=== PATIENT | male | born 1960 | race Caucasian/White ===

== ENCOUNTER 2023-12-14 02:24 | Inpatient (IN) ==
--- NOTE | 2023-12-14 02:55 | Emergency Department Note ---
History of Present Illness General Chief complaint: Abdominal Pain Stated complaint: BLOATING, CONSTIPATION FOR 2 WEEKS Time Seen by Provider: 12/14/23 02:38 History of Present Illness Maximum Pain Intensity: 7 This 63-year-old male presents to the ER complaining abdominal fullness and bloating and lower leg swelling for the past week or 2 steadily getting worse. Patient states he only has a couple beers a day. Patient has not noticed that his urines been dark. His urine sample was quite brown in color. Patient denies chest pain, fever, chills, cough, congestion, flulike illness. No known alcoholism problem per patient. Home Medications Medication Instructions Recorded Confirmed Type docusate sodium 100 mg capsule 100 mg PO BID PRN constipation #20 06/11/18 Rx (Colace) caps oxycodone 5 mg tablet 5 - 10 mg (1 - 2 x 5 mg) PO Q6H 06/11/18 Rx PRN pain #15 tabs Allergies Allergy/AdvReac Type Severity Reaction Status Date / Time No Known Allergies Allergy Unverified 06/11/18 02:15 Past Med/Surg History Problem List (Updated 12/14/23 @ 04:55 by Johanny Peña PA-C) Acute hyponatremia (Acute) Cirrhosis of liver with ascites (Acute) Hypotension (Acute) Atrial fibrillation with rapid ventricular response (Acute) Hemorrhoids (Chronic) Acute cholecystitis (Acute) Acute cholecystitis (Acute 07/11/13) Helicobacter pylori antibody positive (Acute) Social History Smoking Status: Never smoker Preferred Language: Kosovan Feels Safe at Home: Yes Review of Systems A total of 10 systems reviewed and were otherwise negative Physical Exam Vital Signs Vital Signs - 24 hr 12/14/23 02:32 12/14/23 02:48 12/14/23 02:48 Temperature 36.8 C Temperature Source Temporal Artery Scan Pulse Rate 120 H 115 H Pulse Rate [Left Radial] 125 H Pulse Rate from SpO2 Sensor Pulse Rhythm Pulse Rhythm [Left Radial] Regular Pulse Strength [Left Radial] Normal Respiratory Rate 20 22 25 H Respiratory Effort / Characteristics Non-Labored Non-Labored Spontaneous Respiratory Depth Normal Normal Respiratory Pattern Regular Blood Pressure 133/74 120/86 Blood Pressure [Right Arm] 120/86 Blood Pressure Mean 93 97 Blood Pressure Mean [Right Arm] 97 Blood Pressure Position [Right Arm] Lying Pulse Oximetry 98 99 96 Oxygen Delivery Method Room Air Room Air Sepsis Recent Fever Within 48 Hours No Sepsis New/Unexplained Change in Mental Status No Sepsis Action Taken by Nursing No Action Required 12/14/23 02:49 12/14/23 03:02 12/14/23 03:30 Temperature Temperature Source Pulse Rate 122 H 115 H Pulse Rate [Left Radial] 107 H Pulse Rate from SpO2 Sensor Pulse Rhythm Regular Pulse Rhythm [Left Radial] Regular Pulse Strength [Left Radial] Normal Respiratory Rate 22 20 Respiratory Effort / Characteristics Non-Labored Spontaneous Respiratory Depth Normal Respiratory Pattern Regular Blood Pressure Blood Pressure [Right Arm] 137/85 Blood Pressure Mean Blood Pressure Mean [Right Arm] 102 Blood Pressure Position [Right Arm] Lying Pulse Oximetry 98 99 Oxygen Delivery Method Room Air Room Air Sepsis Recent Fever Within 48 Hours Sepsis New/Unexplained Change in Mental Status Sepsis Action Taken by Nursing 12/14/23 03:30 12/14/23 04:00 12/14/23 04:00 Temperature Temperature Source Pulse Rate 105 H 100 H 100 H Pulse Rate [Left Radial] Pulse Rate from SpO2 Sensor 104 H 100 H Pulse Rhythm Pulse Rhythm [Left Radial] Pulse Strength [Left Radial] Respiratory Rate 17 13 Respiratory Effort / Characteristics Respiratory Depth Respiratory Pattern Blood Pressure 137/85 127/81 127/81 Blood Pressure [Right Arm] Blood Pressure Mean 101 95 96 Blood Pressure Mean [Right Arm] Blood Pressure Position [Right Arm] Pulse Oximetry 97 96 96 Oxygen Delivery Method Sepsis Recent Fever Within 48 Hours Sepsis New/Unexplained Change in Mental Status Sepsis Action Taken by Nursing 12/14/23 05:00 Temperature Temperature Source Pulse Rate 97 H Pulse Rate [Left Radial] Pulse Rate from SpO2 Sensor 97 H Pulse Rhythm Pulse Rhythm [Left Radial] Pulse Strength [Left Radial] Respiratory Rate 15 Respiratory Effort / Characteristics Respiratory Depth Respiratory Pattern Blood Pressure 131/80 Blood Pressure [Right Arm] Blood Pressure Mean 95 Blood Pressure Mean [Right Arm] Blood Pressure Position [Right Arm] Pulse Oximetry 95 Oxygen Delivery Method Sepsis Recent Fever Within 48 Hours Sepsis New/Unexplained Change in Mental Status Sepsis Action Taken by Nursing VITALS: Vitals are noted on the nurse's note and reviewed by myself. Vital signs stable. GENERAL: White male mild jaundice, in no acute distress, nondiaphoretic, well- developed well-nourished. SKIN: Capillary reflex less than 2 seconds. HEENT: Normocephalic. PERRLA. EOMI. Nares patent. Mucous membranes moist. Neck is supple without nuchal rigidity. HEART: Regular rate and rhythm LUNGS: Clear to auscultation bilaterally without wheezes, rales or rhonchi. No retractions or accessory muscle use. ABDOMEN: Positive bowel sounds x 4. Normal tympanic percussion. Soft, distended, mild diffuse tenderness, positive fluid wave, without masses or organomegaly. Rausch sign negative. No guarding or rebound tenderness. no CVA tenderness MUSCULOSKELETAL: No gross musculoskeletal defects. +1 pitting edema up to the mid tib-fib bilaterally. NEURO: Patient was alert and oriented to person place and time. No focal neurological deficits. Course Administered Medications Discontinued Medications Sodium Chloride (Nss) 500 mls @ 999 mls/hr IV .Q31M ONE Stop: 12/14/23 04:37 Last Infusion: 12/14/23 05:26 Dose: Infused Documented By: Admin: 12/14/23 04:21 Dose: 999 mls/hr Documented By: JYOTI Ioversol (Optiray 320 125ml) 125 ml IV ONCE ONE Stop: 12/14/23 03:30 Last Admin: 12/14/23 03:30 Dose: 118 ml Documented By: DAVID Medical Decision Making Medical Records Attestation: I reviewed the patient's medical records. Home Medications Current Medication List: was personally reviewed by me Laboratory Data Attestation: I reviewed the patient's lab results. 12/14/23 02:50 12/14/23 02:50 Lab Results 12/14/23 12/14/23 12/14/23 Range/Units 02:45 02:50 03:02 WBC 7.20 (4.8-10.8) K/ul RBC 3.99 L (4.70-6.10) M/uL Hgb 13.8 L (14.0-18.0) g/dl POC Hgb 14.6 (14.0-18.0) g/dl Hct 39.8 L (42.0-52.0) % POC Hct 43 (42-52) % MCV 99.7 (80.0-100.0) fL MCH 34.6 H (25.0-34.0) pg MCHC 34.7 (32.0-36.0) g/dL RDW Std Deviation 49.6 H (36.4-46.3) fL RDW Coeff of Elisabeth 13.4 (11.5-14.5) % Plt Count 237 (130-400) K/uL MPV 9.1 L (9.4-12.4) fL Immature Gran % (Auto) 0.4 % Neut % (Auto) 65.5 % Lymph % (Auto) 19.0 % [place] % (Auto) 12.5 % Eos % (Auto) 2.2 % Baso % (Auto) 0.4 % Neut # (Auto) 4.71 (1.40-6.50) K/uL Lymph # (Auto) 1.37 (1.20-3.40) K/uL [place] # (Auto) 0.90 H (0.11-0.59) K/uL Eos # (Auto) 0.16 (0.00-0.50) K/uL Baso # (Auto) 0.03 (0.00-0.20) K/uL Immature Gran # (Auto) 0.03 (0.01-0.20) K/uL PT 13.5 H (9.0-12.0) Seconds INR 1.3 H (0.9-1.1) APTT 27 (21-31) Seconds PTT Ratio 1.0 POC Sodium 127 L (135-144) mmol/L Sodium 124 L (136-145) mmol/L POC Potassium 4.7 (3.3-5.0) mmol/L Potassium 4.5 (3.5-5.1) mmol/L POC Chloride 93 L (101-112) mmol/L Chloride 92 L (98-107) mmol/L Carbon Dioxide 24 (21-32) mmol/L POC Total CO2 24 (24-31) mmol/L Anion Gap 8 (3-11) POC Anion Gap 16.0 (16-25) mmol/L POC BUN 11 (7-18) mg/dl BUN 13 (6-23) mg/dl Creatinine 0.79 (0.6-1.4) mg/dl POC Creatinine 0.7 (0.6-1.3) mg/dl Est Cr Clr Drug Dosing 120.9 ml/min Est GFR ( Amer) 110.8 ml/min Est GFR (Non-Af Amer) 95.6 ml/min BUN/Creatinine Ratio 16.5 (10-20) Glucose 104 H (70-99(Fasting)) mg/dl POC Glucose (other) 104 H (70-99) mg/dl Osmolality 271 L (280-300) mOsm/kg Calcium 8.3 L (8.6-10.3) mg/dl POC Ioniz Calcium Chaim 1.09 L (1.12-1.32) mmol/l Magnesium 2.3 (1.7-2.4) mg/dl Total Bilirubin 2.6 H (0.2-1.0) mg/dl AST 40 H (13-39) U/L ALT 24 (7-52) U/L Alkaline Phosphatase 141 H (34-104) U/L Total Protein 7.7 (6.0-8.3) gm/dl Albumin 2.7 L (3.4-5.0) gm/dl Globulin 5.0 H (2.5-4.0) gm/dl Albumin/Globulin Ratio 0.5 L (0.9-2) Lipase 26 (11-82) U/L Urine Color [place] Urine Appearance Cloudy A (Clear) Urine pH 6.0 (4.5-7.5) Ur Specific [employer] 1.027 (1.000-1.030) Urine Protein 1+ H (Negative) Urine Glucose (UA) Negative (Negative) Urine Ketones 1+ H (Negative) Urine Blood Negative (Negative) Urine Nitrite Positive A (Negative) Urine Bilirubin 1+ H (Negative) Urine Urobilinogen Negative (Negative) Ur Leukocyte Esterase 1+ H (Negative) Urine WBC (Auto) 0-5 (0-5) /hpf Urine RBC (Auto) 0-2 (0-2) /hpf U Hyaline Cast (Auto) 3-5 H (0-2) /lpf U Epithel Cells (Auto) 3-5 H (0-2) /hpf Urine Bacteria (Auto) None Seen (None Seen) Urine Mucus Present A (None Prsent) Urine Osmolality 661 (500-800) mOsm/kg Ethyl Alcohol mg/dL < 10.0 (<10.0) mg/dl Imaging Data Attestation: I personally reviewed and interpreted this imaging study as follows: Radiologist's Impression: Chest CTA 12/14/23 02:50 Exam(s): CTA CHEST IV Amt: 118 ML OPTIRAY 320 EXAM: CT Angiography Chest With Intravenous Contrast CLINICAL HISTORY: Reason for exam: PE. TECHNIQUE: Axial computed tomographic angiography images of the chest with intravenous contrast. CTDI is 22.54 mGy and DLP is 677.24 mGy-cm. Automated exposure control was utilized for the study. A dose lowering technique was utilized adhering to the principles of ALARA. MIP reconstructed images were created and reviewed. COMPARISON: None FINDINGS: Pulmonary arteries: Unremarkable. No definite pulmonary embolus identified. Aorta: No acute findings. No aortic aneurysm or dissection. Lungs: Mild dependent atelectasis and lower lung atelectasis. No mass. Pleural space: Trace left and small right pleural effusions. No pneumothorax. Heart: Coronary artery calcifications. No cardiomegaly. No significant pericardial effusion. No evidence of RV dysfunction. Mediastinum: Small hiatal hernia. Bones/joints: Curvature of the spine. Degenerative changes of the spine. No acute fracture. No dislocation. Soft tissues: Mild bilateral gynecomastia. Lymph nodes: Unremarkable. No enlarged lymph nodes. Other findings: Please see accompanying CT abdomen/pelvis for further details. IMPRESSION: 1. No definite pulmonary embolus identified. 2. No aortic aneurysm or dissection. 3. Trace left and small right pleural effusions. 4. Mild dependent atelectasis and lower lung atelectasis. Electronically signed by: Delfino Newell M.D. 12/14/23 05:36 AM Abdomen/Pelvis CT 12/14/23 02:51 Exam(s): CT ABDOMEN + PELVIS With Contrast IV Amt: 118 ML OPTIRAY 320 EXAM: CT Abdomen and Pelvis With Intravenous Contrast CLINICAL HISTORY: Reason for exam: abd pain. TECHNIQUE: Axial computed tomography images of the abdomen and pelvis with intravenous contrast. CTDI is 26.27 mGy and DLP is 1439.16 mGy-cm. Automated exposure control was utilized for the study. A dose lowering technique was utilized adhering to the principles of ALARA. CONTRAST: Patient received 118 ML OPTIRAY 320 of IV contrast COMPARISON: CT abdomen/pelvis on 07/11/2013 FINDINGS: Lung bases: Please see accompanying CT chest for further details. ABDOMEN: Liver: Hepatic steatosis. Hepatomegaly. Nodular contour of the liver is suggestive of cirrhosis. Gallbladder and bile ducts: Prior cholecystectomy. No ductal dilation. Pancreas: Unremarkable. No mass. No ductal dilation. Spleen: Mild splenomegaly. Adrenals: Unremarkable. No mass. Kidneys and ureters: Unremarkable. No hydronephrosis or obstructing ureteral stone. Stomach and bowel: Mildly distended fluid and gas-filled small bowel loops could be secondary to enteritis or ileus. Partial small bowel obstruction in the distal ileum is not excluded. Evaluation of the stomach is limited by under distention. Diverticulosis without evidence of diverticulitis. PELVIS: Appendix: Normal appendix. Bladder: Underdistended bladder limits evaluation. Reproductive: Unremarkable as visualized. ABDOMEN and PELVIS: Intraperitoneal space: Large amount of ascites. Wall thickening of the colon may be secondary to under distention versus ascites versus colitis. Mild prominence of the maldonado of the small bowel may be secondary to ascites versus enteritis. No free air. Bones/joints: Degenerative changes of the spine. No acute fracture. No dislocation. Soft tissues: Body wall edema. Small fat-containing bilateral inguinal hernias. Small fat-containing umbilical hernia. Vasculature: Phleboliths in the pelvis. Atherosclerotic changes of the vasculature. No abdominal aortic aneurysm or dissection. Recanalized umbilical vein. Lymph nodes: Unremarkable. No enlarged lymph nodes. IMPRESSION: 1. Large amount of ascites. 2. Body wall edema. 3. Wall thickening of the colon may be secondary to under distention versus ascites versus colitis. 4. Mildly distended fluid and gas-filled small bowel loops could be secondary to enteritis or ileus. Partial small bowel obstruction in the distal ileum is not excluded. 5. Mild prominence of the maldonado of the small bowel may be secondary to ascites versus enteritis. 6. Hepatic steatosis. Hepatomegaly. Nodular contour of the liver is suggestive of cirrhosis. 7. Mild splenomegaly. Electronically signed by: Delfino Newell M.D. 12/14/23 05:40 AM MDM Narrative Prior records/ancillary studies reviewed and summarized above. Nursing notes reviewed. Additional history obtained from nursing. The patient's history was concerning for abdominal bloating. Differential diagnosis: Etiologies such as cirrhosis, liver disease, metabolic, infection, hypo/hyperglycemia, electrolyte abnormalities, cardiac sources, intracerebral event, toxicologic, neurologic, as well as others were entertained. Physical examination: As above. ER treatment provided: IV Lock An order was placed for continuous cardiac monitoring. The monitor shows a rate of 60-100 with a sinus rhythm per my interpretation. Normal saline On reassessment the patient felt better. Diagnostics interpretation by me: ECG: Ordered for weakness EKG: Normal sinus, normal intervals, no acute ST-T wave changes. Impression sinus tachycardia independently interpreted by myself The labs Independently Interpreted by myself revealed hyponatremia and osmolarity levels were ordered Mild anemia, no worrisome leukocytosis Elevated bilirubin most likely related to patient's alcoholism Negative alcohol Imaging studies: CTs were reviewed and read by radiology as above Consultation: A consultation was placed with the hospitalist. The case was discussed and diagnostics were reviewed. The patient was evaluated in the ER for further treatment. MELD sodium score is 23 Exam and history seem consistent with cirrhosis with ascites and hyponatremia most likely related to alcoholism. Medicine was consulted case discussed. Patient will be admitted to the medical service. By the evaluation outlined above emergent etiologies such as infection, cardiac sources, intracerebral event, neurologic, abnormalities blood glucose, as well as others were deemed relatively unlikely. The pt informed about the findings as listed above. All questions were answered and pleased with the treatment. The chart was completed utilizing [employer] Speech voice recognition software. Grammatical errors, random word insertions, pronoun errors, and incomplete sentences are an occassional consequence of this system due to software limitations, ambient noise, and hardware issues. Any formal questions or concerns about the content, text, or information contained within the body of this dictation should be directly addressed to the physician delinquent tax collection assistant for clarification. Impression & Plan Cirrhosis of liver with ascites, Acute hyponatremia Discharge Plan Visit Data Chief Complaint: Abdominal Pain Stated Complaint: BLOATING, CONSTIPATION FOR 2 WEEKS ED Provider: Tobin Stone ED Midlevel Provider: Johanny Peña Discharge Problem: Cirrhosis of liver with ascites, Acute hyponatremia Patient Disposition: Admitted As Inpatient Condition: Fair Forms Stand Alone Forms: [employer] Prescriptions Prescriptions: No Action oxycodone 5 mg tablet 5 - 10 mg PO Q6H PRN (Reason: pain) Qty: 15 0RF docusate sodium [Colace] 100 mg capsule 100 mg PO BID PRN (Reason: constipation) Qty: 20 0RF Referrals Referrals: Jasper Kaufman DO [Primary Care Provider] - Discharge Problem: Cirrhosis of liver with ascites Qualifiers: Hepatic cirrhosis type: unspecified hepatic cirrhosis Qualified Code(s): K74.60 - Unspecified cirrhosis of liver
[2023-12-14 03:14] LABS: iSTAT Creatinine 0.7 mg/dl (0.6-1.3); iSTAT Hemoglobin 14.6 g/dl (14.0-18.0); iSTAT Ionized Calcium 1.09 mmol/l (1.12-1.32); iSTAT Potassium 4.7 mmol/L (3.3-5.0)
[2023-12-14] MEDS: OPTIRAY 320 125ml IV ONE (03:30)
[2023-12-14 03:36] LABS: Basophils # (auto) 0.03 K/uL (0.00-0.20); Basophils % (auto) 0.4 %; Eosinophils # (auto) 0.16 K/uL (0.00-0.50); Eosinophils % (auto) 2.2 %; Hematocrit (blood only) 39.8 % (42.0-52.0); Hemoglobin 13.8 g/dl (14.0-18.0); Immature Granulocytes # (auto) 0.03 K/uL (0.01-0.20); Immature Granulocytes % (auto) 0.4 %; Lymphocytes # (auto) 1.37 K/uL (1.20-3.40); Mean Corpuscular Hemoglobin 34.6 pg (25.0-34.0); Mean Corpuscular Hgb Conc 34.7 g/dL (32.0-36.0); Mean Corpuscular Volume 99.7 fL (80.0-100.0); Mean Platelet Volume 9.1 fL (9.4-12.4); Monocytes % (auto) 12.5 %; Neutrophils # (auto) 4.71 K/uL (1.40-6.50); Neutrophils % (auto) 65.5 %; Platelet Count 237 K/uL (130-400); RDW Coefficient of Variation 13.4 % (11.5-14.5); RDW Standard Deviation 49.6 fL (36.4-46.3); Red Blood Count 3.99 M/uL (4.70-6.10)
[2023-12-14 03:38] LABS: Appearance Urine Cloudy (Clear); Bacteria Urine Automated None Seen (None Seen); Bilirubin Urine 1+ (Negative); Blood Urine Negative (Negative); Color Urine Orange; Glucose Urine UA Negative (Negative); Ketones Urine 1+ (Negative); Leukocyte Esterase Urine 1+ (Negative); Mucus Urine Present (None Prsent); Nitrite Urine Positive (Negative); Protein Urine 1+ (Negative); RBC Urine Automated 0-2 /hpf (0-2); Specific Gravity Urine 1.027 (1.000-1.030); Urobilinogen Urine Negative (Negative); WBC Urine Automated 0-5 /hpf (0-5)
[2023-12-14 03:45] LABS: Albumin Level 2.7 gm/dl (3.4-5.0); Bilirubin,Total 2.6 mg/dl (0.2-1.0); Calcium 8.3 mg/dl (8.6-10.3); Magnesium 2.3 mg/dl (1.7-2.4); Potassium 4.5 mmol/L (3.5-5.1)
[2023-12-14 03:51] LABS: Albumin Globulin Ratio 0.5 (0.9-2); BUN Creatinine Ratio 16.5 (10-20); Creatinine Clr Calc Pharmacy 120.9 ml/min; Est GFR (African American) 110.8 ml/min; Est GFR (Non-African American) 95.6 ml/min; Total Protein 7.7 gm/dl (6.0-8.3)
[2023-12-14 04:00] LABS: INR 1.3 (0.9-1.1); Partial Thromboplastin Time 27 Seconds (21-31); Prothrombin Time 13.5 Seconds (9.0-12.0)
[2023-12-14] MEDS: SODIUM CHLORIDE 0.9% 500 ML IV ONE (04:21)
--- NOTE | 2023-12-14 05:37 | CT Scan Report ---
Exam(s): CTA CHEST IV Amt: 118 ML OPTIRAY 320 EXAM: CT Angiography Chest With Intravenous Contrast CLINICAL HISTORY: Reason for exam: PE. TECHNIQUE: Axial computed tomographic angiography images of the chest with intravenous contrast. CTDI is 22.54 mGy and DLP is 677.24 mGy-cm. Automated exposure control was utilized for the study. A dose lowering technique was utilized adhering to the principles of ALARA. MIP reconstructed images were created and reviewed. COMPARISON: None FINDINGS: Pulmonary arteries: Unremarkable. No definite pulmonary embolus identified. Aorta: No acute findings. No aortic aneurysm or dissection. Lungs: Mild dependent atelectasis and lower lung atelectasis. No mass. Pleural space: Trace left and small right pleural effusions. No pneumothorax. Heart: Coronary artery calcifications. No cardiomegaly. No significant pericardial effusion. No evidence of RV dysfunction. Mediastinum: Small hiatal hernia. Bones/joints: Curvature of the spine. Degenerative changes of the spine. No acute fracture. No dislocation. Soft tissues: Mild bilateral gynecomastia. Lymph nodes: Unremarkable. No enlarged lymph nodes. Other findings: Please see accompanying CT abdomen/pelvis for further details. IMPRESSION: 1. No definite pulmonary embolus identified. 2. No aortic aneurysm or dissection. 3. Trace left and small right pleural effusions. 4. Mild dependent atelectasis and lower lung atelectasis. Electronically signed by: Delfino Newell M.D. 12/14/23 05:36 AM
--- NOTE | 2023-12-14 05:41 | CT Scan Report ---
Exam(s): CT ABDOMEN + PELVIS With Contrast IV Amt: 118 ML OPTIRAY 320 EXAM: CT Abdomen and Pelvis With Intravenous Contrast CLINICAL HISTORY: Reason for exam: abd pain. TECHNIQUE: Axial computed tomography images of the abdomen and pelvis with intravenous contrast. CTDI is 26.27 mGy and DLP is 1439.16 mGy-cm. Automated exposure control was utilized for the study. A dose lowering technique was utilized adhering to the principles of ALARA. CONTRAST: Patient received 118 ML OPTIRAY 320 of IV contrast COMPARISON: CT abdomen/pelvis on 07/11/2013 FINDINGS: Lung bases: Please see accompanying CT chest for further details. ABDOMEN: Liver: Hepatic steatosis. Hepatomegaly. Nodular contour of the liver is suggestive of cirrhosis. Gallbladder and bile ducts: Prior cholecystectomy. No ductal dilation. Pancreas: Unremarkable. No mass. No ductal dilation. Spleen: Mild splenomegaly. Adrenals: Unremarkable. No mass. Kidneys and ureters: Unremarkable. No hydronephrosis or obstructing ureteral stone. Stomach and bowel: Mildly distended fluid and gas-filled small bowel loops could be secondary to enteritis or ileus. Partial small bowel obstruction in the distal ileum is not excluded. Evaluation of the stomach is limited by under distention. Diverticulosis without evidence of diverticulitis. PELVIS: Appendix: Normal appendix. Bladder: Underdistended bladder limits evaluation. Reproductive: Unremarkable as visualized. ABDOMEN and PELVIS: Intraperitoneal space: Large amount of ascites. Wall thickening of the colon may be secondary to under distention versus ascites versus colitis. Mild prominence of the maldonado of the small bowel may be secondary to ascites versus enteritis. No free air. Bones/joints: Degenerative changes of the spine. No acute fracture. No dislocation. Soft tissues: Body wall edema. Small fat-containing bilateral inguinal hernias. Small fat-containing umbilical hernia. Vasculature: Phleboliths in the pelvis. Atherosclerotic changes of the vasculature. No abdominal aortic aneurysm or dissection. Recanalized umbilical vein. Lymph nodes: Unremarkable. No enlarged lymph nodes. IMPRESSION: 1. Large amount of ascites. 2. Body wall edema. 3. Wall thickening of the colon may be secondary to under distention versus ascites versus colitis. 4. Mildly distended fluid and gas-filled small bowel loops could be secondary to enteritis or ileus. Partial small bowel obstruction in the distal ileum is not excluded. 5. Mild prominence of the maldonado of the small bowel may be secondary to ascites versus enteritis. 6. Hepatic steatosis. Hepatomegaly. Nodular contour of the liver is suggestive of cirrhosis. 7. Mild splenomegaly. Electronically signed by: Delfino Newell M.D. 12/14/23 05:40 AM
[2023-12-14] MEDS: cefTRIAXone SODIUM 2,000 MG/50 ML BAG IV STA (06:10)
[2023-12-14] MEDS: FUROSEMIDE INJ 20 MG/2 ML VIAL IV ONE (06:10)
--- NOTE | 2023-12-14 06:38 | History & Physical Report ---
Date of Service December 14, 2023 Assessment & Plan (1) Hyponatremia: Plan: Hypervolemic hyponatremia In the setting of new diagnosis of alcoholic cirrhosis Home NSAID use contributory Ascites possible SBP, no sepsis for now Complicated UTI, no sepsis for now Alcoholic hepatitis, good prognosis with computed Maddrey's DF score of 9.5 points LE swelling secondary to decompensated cirrhosis rule out DVT New onset anemia possibly from hemorrhoidal bleed as per patient account PAF, patient NSR hyperlipidemia, not on maintenance medications mood disorder, stable off maintenance medications past tobacco abuse Admit to medical telemetry Diuretic Rx Hyponatremia workup Patient counseled regarding fluid retention and hyponatremia side effects of of NSAID use. May benefit from Nephrology consultation Urine CS Ceftriaxone and albumin for possible SBP Diagnostic and therapeutic paracentesis in a.m. GI consult re: new diagnosis of cirrhosis LE venous Dopplers rule out DVT Anemia workup WENDY S at risk protocol, DT precautions DVT prophylaxis. SCDs if no blood clot on ultrasound Full code Text document was generated using [employer] voice recognition software. It may contain grammatical or spelling errors. Kindly contact undersigned for clarification of any documentation item in question. History of Present Illness Chief Complaint: Abdominal pain, worsening abdominal distention [facility] History obtained from patient and records. Medical history significant for PAF, hyperlipidemia, alcohol abuse, colonic polyps, internal hemorrhoids as per records, mood disorder, past tobacco abuse. Last confinement 2012 for paroxysmal A-fib. Patient discharged on metoprolol and aspirin as per cardiology recommendations. 1 month history of increasing abdominal distention. 3 weeks ago, patient noted achy abdominal discomfort. No fever, no chills. Increasing leg swelling the last couple of weeks. Denies chest pain, SOB. Episodic hemorrhoidal bleed from constipation. Patient started to cut down on alcohol 3 weeks ago as he suspected belly issues to be related to consumption. Patient consulted ER for worsening symptoms. Medical History as above Surgical History : Umbilical hernia repair, cholecystectomy Family History : Prostate cancer, DM, colon cancer, heart disease Personal/Social history : Past tobacco abuse, alcohol abuse, retired medical equipment manufacturing employee Allergies Allergy/AdvReac Type Severity Reaction Status Date / Time No Known Allergies Allergy Verified 12/14/23 06:18 Home Medications Medication Instructions Recorded Confirmed Type docusate sodium 100 mg capsule 100 mg PO BID PRN constipation #20 06/11/18 12/14/23 Rx (Colace) caps Advil 2 tab PO Q8 PRN Pain 12/14/23 12/14/23 History Miralax 1 dose PO HS PRN Constipation 12/14/23 12/14/23 History Past Med/Surg History Problem List (Updated 12/14/23 @ 08:39 by Lonny Pickens MD) Hyponatremia Acute hyponatremia (Acute) Cirrhosis of liver with ascites (Acute) Hypotension (Acute) Atrial fibrillation with rapid ventricular response (Acute) Hemorrhoids (Chronic) Acute cholecystitis (Acute) Acute cholecystitis (Acute 07/11/13) Helicobacter pylori antibody positive (Acute) Social History Smoking Status: Never smoker Preferred Language: Thai Feels Safe at Home: Yes Review of Systems Review of Systems: As per HPI, all other systems reviewed and negative Physical Exam Physical Exam: GENERAL: Comfortable, pleasant, no respiratory distress SKIN: Pallor, warm HEENT: Pale palpebral conjunctivae, no ptosis, dry buccal mucosa NECK : Supple, no tenderness CHEST : CTA, no tenderness HEART : Tachycardic, no obvious murmurs ABDOMEN: Marked abdominal distention, central abdominal tenderness, positive fluid wave EXTREMITIES : Bilateral LE swelling without tenderness, no other conspicuous deformities noted NEUROLOGIC : Coherent, no facial asymmetry, no other gross focality Results & Data Results & Data Vital Signs (Past 12 Hours) Vital Signs Temp Pulse Pulse Resp BP BP Pulse Ox 12/14/23 06:12 99 H 22 122/80 97 12/14/23 05:30 100 H 25 H 125/82 98 12/14/23 05:00 97 H 15 131/80 95 12/14/23 04:00 100 H 13 127/81 96 12/14/23 04:00 100 H 127/81 96 12/14/23 03:30 105 H 17 137/85 97 12/14/23 03:30 107 H 20 137/85 99 12/14/23 03:02 115 H 22 98 12/14/23 02:49 122 H 12/14/23 02:48 115 H 25 H 120/86 96 12/14/23 02:48 125 H 22 120/86 99 12/14/23 02:32 36.8 C 120 H 20 133/74 98 O2 Del Method 12/14/23 06:12 Room Air 12/14/23 05:30 Room Air 12/14/23 05:00 12/14/23 04:00 12/14/23 04:00 12/14/23 03:30 12/14/23 03:30 Room Air 12/14/23 03:02 Room Air 12/14/23 02:49 12/14/23 02:48 12/14/23 02:48 Room Air 12/14/23 02:32 Room Air Laboratory Results Laboratory Results WBC 7.20 K/ul (4.8-10.8) 12/14/23 02:50 RBC 3.99 M/uL (4.70-6.10) L 12/14/23 02:50 Hgb 13.8 g/dl (14.0-18.0) L 12/14/23 02:50 POC Hgb 14.6 g/dl (14.0-18.0) 12/14/23 03:02 Hct 39.8 % (42.0-52.0) L 12/14/23 02:50 POC Hct 43 % (42-52) 12/14/23 03:02 MCV 99.7 fL (80.0-100.0) 12/14/23 02:50 MCH 34.6 pg (25.0-34.0) H 12/14/23 02:50 MCHC 34.7 g/dL (32.0-36.0) 12/14/23 02:50 RDW Std Deviation 49.6 fL (36.4-46.3) H 12/14/23 02:50 RDW Coeff of Elisabeth 13.4 % (11.5-14.5) 12/14/23 02:50 Plt Count 237 K/uL (130-400) 12/14/23 02:50 MPV 9.1 fL (9.4-12.4) L 12/14/23 02:50 Immature Gran % (Auto) 0.4 % 12/14/23 02:50 Neut % (Auto) 65.5 % 12/14/23 02:50 Lymph % (Auto) 19.0 % 12/14/23 02:50 [place] % (Auto) 12.5 % 12/14/23 02:50 Eos % (Auto) 2.2 % 12/14/23 02:50 Baso % (Auto) 0.4 % 12/14/23 02:50 Neut # (Auto) 4.71 K/uL (1.40-6.50) 12/14/23 02:50 Lymph # (Auto) 1.37 K/uL (1.20-3.40) 12/14/23 02:50 [place] # (Auto) 0.90 K/uL (0.11-0.59) H 12/14/23 02:50 Eos # (Auto) 0.16 K/uL (0.00-0.50) 12/14/23 02:50 Baso # (Auto) 0.03 K/uL (0.00-0.20) 12/14/23 02:50 Immature Gran # (Auto) 0.03 K/uL (0.01-0.20) 12/14/23 02:50 PT 13.5 Seconds (9.0-12.0) H 12/14/23 02:50 INR 1.3 (0.9-1.1) H 12/14/23 02:50 APTT 27 Seconds (21-31) 12/14/23 02:50 PTT Ratio 1.0 12/14/23 02:50 POC Sodium 127 mmol/L (135-144) L 12/14/23 03:02 Sodium 124 mmol/L (136-145) L 12/14/23 02:50 POC Potassium 4.7 mmol/L (3.3-5.0) 12/14/23 03:02 Potassium 4.5 mmol/L (3.5-5.1) 12/14/23 02:50 POC Chloride 93 mmol/L (101-112) L 12/14/23 03:02 Chloride 92 mmol/L (98-107) L 12/14/23 02:50 Carbon Dioxide 24 mmol/L (21-32) 12/14/23 02:50 POC Total CO2 24 mmol/L (24-31) 12/14/23 03:02 Anion Gap 8 (3-11) 12/14/23 02:50 POC Anion Gap 16.0 mmol/L (16-25) 12/14/23 03:02 POC BUN 11 mg/dl (7-18) 12/14/23 03:02 BUN 13 mg/dl (6-23) 12/14/23 02:50 Creatinine 0.79 mg/dl (0.6-1.4) 12/14/23 02:50 POC Creatinine 0.7 mg/dl (0.6-1.3) 12/14/23 03:02 Est Cr Clr Drug Dosing 120.9 ml/min 12/14/23 02:50 Est GFR ( Amer) 110.8 ml/min 12/14/23 02:50 Est GFR (Non-Af Amer) 95.6 ml/min 12/14/23 02:50 BUN/Creatinine Ratio 16.5 (10-20) 12/14/23 02:50 Glucose 104 mg/dl (70-99(Fasting)) H 12/14/23 02:50 POC Glucose (other) 104 mg/dl (70-99) H 12/14/23 03:02 Osmolality 271 mOsm/kg (280-300) L 12/14/23 02:50 Calcium 8.3 mg/dl (8.6-10.3) L 12/14/23 02:50 POC Ioniz Calcium [place] 1.09 mmol/l (1.12-1.32) L 12/14/23 03:02 Magnesium 2.3 mg/dl (1.7-2.4) 12/14/23 02:50 Total Bilirubin 2.6 mg/dl (0.2-1.0) H 12/14/23 02:50 AST 40 U/L (13-39) H 12/14/23 02:50 ALT 24 U/L (7-52) 12/14/23 02:50 Alkaline Phosphatase 141 U/L (34-104) H 12/14/23 02:50 Total Protein 7.7 gm/dl (6.0-8.3) 12/14/23 02:50 Albumin 2.7 gm/dl (3.4-5.0) L 12/14/23 02:50 Globulin 5.0 gm/dl (2.5-4.0) H 12/14/23 02:50 Albumin/Globulin Ratio 0.5 (0.9-2) L 12/14/23 02:50 Lipase 26 U/L (11-82) 12/14/23 02:50 Urine Color [place] 12/14/23 02:45 Urine Appearance Cloudy (Clear) A 12/14/23 02:45 Urine pH 6.0 (4.5-7.5) 12/14/23 02:45 Ur Specific [place] 1.027 (1.000-1.030) 12/14/23 02:45 Urine Protein 1+ (Negative) H 12/14/23 02:45 Urine Glucose (UA) Negative (Negative) 12/14/23 02:45 Urine Ketones 1+ (Negative) H 12/14/23 02:45 Urine Blood Negative (Negative) 12/14/23 02:45 Urine Nitrite Positive (Negative) A 12/14/23 02:45 Urine Bilirubin 1+ (Negative) H 12/14/23 02:45 Urine Urobilinogen Negative (Negative) 12/14/23 02:45 Ur Leukocyte Esterase 1+ (Negative) H 12/14/23 02:45 Urine WBC (Auto) 0-5 /hpf (0-5) 12/14/23 02:45 Urine RBC (Auto) 0-2 /hpf (0-2) 12/14/23 02:45 U Hyaline Cast (Auto) 3-5 /lpf (0-2) H 12/14/23 02:45 U Epithel Cells (Auto) 3-5 /hpf (0-2) H 12/14/23 02:45 Urine Bacteria (Auto) None Seen (None Seen) 12/14/23 02:45 Urine Mucus Present (None Prsent) A 12/14/23 02:45 Urine Osmolality 661 mOsm/kg (500-800) 12/14/23 02:45 Ethyl Alcohol mg/dL < 10.0 mg/dl (<10.0) 12/14/23 02:50 Impressions Chest CTA 12/14/23 02:50 Exam(s): CTA CHEST IV Amt: 118 ML OPTIRAY 320 EXAM: CT Angiography Chest With Intravenous Contrast CLINICAL HISTORY: Reason for exam: PE. TECHNIQUE: Axial computed tomographic angiography images of the chest with intravenous contrast. CTDI is 22.54 mGy and DLP is 677.24 mGy-cm. Automated exposure control was utilized for the study. A dose lowering technique was utilized adhering to the principles of ALARA. MIP reconstructed images were created and reviewed. COMPARISON: None FINDINGS: Pulmonary arteries: Unremarkable. No definite pulmonary embolus identified. Aorta: No acute findings. No aortic aneurysm or dissection. Lungs: Mild dependent atelectasis and lower lung atelectasis. No mass. Pleural space: Trace left and small right pleural effusions. No pneumothorax. Heart: Coronary artery calcifications. No cardiomegaly. No significant pericardial effusion. No evidence of RV dysfunction. Mediastinum: Small hiatal hernia. Bones/joints: Curvature of the spine. Degenerative changes of the spine. No acute fracture. No dislocation. Soft tissues: Mild bilateral gynecomastia. Lymph nodes: Unremarkable. No enlarged lymph nodes. Other findings: Please see accompanying CT abdomen/pelvis for further details. IMPRESSION: 1. No definite pulmonary embolus identified. 2. No aortic aneurysm or dissection. 3. Trace left and small right pleural effusions. 4. Mild dependent atelectasis and lower lung atelectasis. Electronically signed by: Deflino Newell M.D. 12/14/23 05:36 AM Abdomen/Pelvis CT 12/14/23 02:51 Exam(s): CT ABDOMEN + PELVIS With Contrast IV Amt: 118 ML OPTIRAY 320 EXAM: CT Abdomen and Pelvis With Intravenous Contrast CLINICAL HISTORY: Reason for exam: abd pain. TECHNIQUE: Axial computed tomography images of the abdomen and pelvis with intravenous contrast. CTDI is 26.27 mGy and DLP is 1439.16 mGy-cm. Automated exposure control was utilized for the study. A dose lowering technique was utilized adhering to the principles of ALARA. CONTRAST: Patient received 118 ML OPTIRAY 320 of IV contrast COMPARISON: CT abdomen/pelvis on 07/11/2013 FINDINGS: Lung bases: Please see accompanying CT chest for further details. ABDOMEN: Liver: Hepatic steatosis. Hepatomegaly. Nodular contour of the liver is suggestive of cirrhosis. Gallbladder and bile ducts: Prior cholecystectomy. No ductal dilation. Pancreas: Unremarkable. No mass. No ductal dilation. Spleen: Mild splenomegaly. Adrenals: Unremarkable. No mass. Kidneys and ureters: Unremarkable. No hydronephrosis or obstructing ureteral stone. Stomach and bowel: Mildly distended fluid and gas-filled small bowel loops could be secondary to enteritis or ileus. Partial small bowel obstruction in the distal ileum is not excluded. Evaluation of the stomach is limited by under distention. Diverticulosis without evidence of diverticulitis. PELVIS: Appendix: Normal appendix. Bladder: Underdistended bladder limits evaluation. Reproductive: Unremarkable as visualized. ABDOMEN and PELVIS: Intraperitoneal space: Large amount of ascites. Wall thickening of the colon may be secondary to under distention versus ascites versus colitis. Mild prominence of the maldonado of the small bowel may be secondary to ascites versus enteritis. No free air. Bones/joints: Degenerative changes of the spine. No acute fracture. No dislocation. Soft tissues: Body wall edema. Small fat-containing bilateral inguinal hernias. Small fat-containing umbilical hernia. Vasculature: Phleboliths in the pelvis. Atherosclerotic changes of the vasculature. No abdominal aortic aneurysm or dissection. Recanalized umbilical vein. Lymph nodes: Unremarkable. No enlarged lymph nodes. IMPRESSION: 1. Large amount of ascites. 2. Body wall edema. 3. Wall thickening of the colon may be secondary to under distention versus ascites versus colitis. 4. Mildly distended fluid and gas-filled small bowel loops could be secondary to enteritis or ileus. Partial small bowel obstruction in the distal ileum is not excluded. 5. Mild prominence of the maldonado of the small bowel may be secondary to ascites versus enteritis. 6. Hepatic steatosis. Hepatomegaly. Nodular contour of the liver is suggestive of cirrhosis. 7. Mild splenomegaly. Electronically signed by: Delfino Newell M.D. 12/14/23 05:40 AM Diagnostic Findings EKG as per my interpretation :Rate 115, sinus tachycardia, normal axis, T wave abnormalities inferior leads
[2023-12-14] MEDS ORDERED: oxyCODONE HCL IR 5 MG TAB (IMMEDIATE RELEASE) PO PRN (06:42)
[2023-12-14] MEDS ORDERED: PROMETHAZINE 6.25 MG/50.25 ML BAG IV PRN (06:42)
[2023-12-14] MEDS ORDERED: MoRPHine SULFATE 2 MG/ML CARP IV PRN (06:42)
[2023-12-14] MEDS ORDERED: ACETAMINOPHEN 500 MG TAB PO PRN (06:42)
[2023-12-14] MEDS: THIAMINE HCL 100 MG in SYRINGE 9 ML IV ONE (06:51)
[2023-12-14 07:13] LABS: Thyroid Stimulating Hormone 8.314 uIu/ml (0.300-4.500)
[2023-12-14 08:07] LABS: T4 Free Thyroxine 0.92 ng/dl (0.61-1.60)
[2023-12-14] MEDS ORDERED: POLYETHYLENE (MIRALAX) 17 GM PACK PO PRN (08:44)
[2023-12-14 08:51] LABS: Reticulocyte % 2.89 % (0.50-2.00); Reticulocytes # 0.1 10^6/uL (0.020-0.100)
--- NOTE | 2023-12-14 08:59 | Electrocardiogram Report ---
Test Reason : Blood Pressure : */* mmHG Vent. Rate : 113 BPM Atrial Rate : 113 BPM P-R Int : 152 ms QRS Dur : 86 ms QT Int : 342 ms P-R-T Axes : -12 79 7 degrees QTcB Int : 469 ms Sinus tachycardia Otherwise normal ECG Confirmed by Jerod Pena ([id number]) on 12/14/2023 8:58:44 AM Referred By: REFERRED SELF Confirmed By: Jerod Pena
[2023-12-14 09:15] LABS: Sodium 125 mmol/L (136-145)
[2023-12-14 09:20] LABS: Iron 48 mcg/dl (35-175); Transferrin < 95 mg/dl (200-360)
[2023-12-14 09:28] LABS: Folate (Folic Acid),Ser orPlas 7.49 ng/ml (>5.38)
[2023-12-14 09:29] LABS: Ferritin 543.5 ng/ml (8-388)
--- NOTE | 2023-12-14 09:39 | Gastrointestinal Consultation ---
Date of Consultation December 14, 2023 Assessment & Plan (1) Cirrhosis of liver with ascites: Patient admitted with ascites in the setting of new cirrhosis. Suspect that this is alcohol related given his extensive alcohol use. He admits that ascites has been an issue for the past 1-2 months. - recommend large volume paracentesis. - will eventually need to start diuretics. would recommend lasix 40mg daily and aldactone 100mg daily to start. - recommend 2 gm low sodium diet. - I discussed with the patient that I recommend he cease all alcohol use. - avoid hepatotoxic medications. - will need eventual EGD as outpatient for variceal screening. - would advise he be set up with hepatology as outpatient. - would recommend eventual colonoscopy as outpatient to further evaluate wall thickening of colon seen on imaging. - recommend miralax use as needed for constipation. Supervising Physician Co-Signing Physician Notes I examined the patient and reviewed patient's chart , laboratory data and imaging studies. I agree with with assessment and plan of care as suggested by advanced practice provider. New onset of ascites, likely from alcoholic cirrhosis. Status post paracentesis. Albumin gradient of 1.2 consistent with portal hypertension. No evidence of SBP. Hepatitis B and C serologies are negative. Elevated ferritin likely secondary to chronic liver disease. Obtain genetic assay for hemochromatosis. When stable discontinue IV Lasix and start p.o. furosemide 40 mg a day and spironolactone 100 mg a day. Follow-up BMP in 1 week. Follow-up in the GI office. History of Present Illness Reason for Consultation: Cirrhosis, ascites Requesting Physician: Lonny Pickens MD Attending Physician: Di Gardner MD History of Present Illness Patient is a 63 year old male who presented to the ED on 12/13 complaining of abdominal fullness and bloating and lower leg swelling that he admits has been an issue over the past 1-2 months. Upon evaluation he had CT imaging concerning for cirrhosis which the patient tells me is new for him. He admits to daily alcohol use and tells me he will have 5-6 beers a day and he also admits to adding bourbon with this at times. He has done this for 6-10 years but admits to being a drinker for longer than that. no drug use. he denies any family history of liver disease. He admits to acid reflux as an outpatient but tells me that rolaids will help with this. He tells me he moves his bowels daily. At times he can skip a day, but usually regular. Lately he feels he has been passing less stool. He does pass gas. he can see blood from a hemorrhoid at times. no melena. Patient denies any current issues with nausea, vomiting, dysphagia, abdominal pain, unintentional weight loss. Allergies Allergy/AdvReac Type Severity Reaction Status Date / Time No Known Allergies Allergy Verified 12/14/23 06:18 Home Medications Medication Instructions Recorded Confirmed Type docusate sodium 100 mg capsule 100 mg PO BID PRN constipation #20 06/11/12/14/23 Rx (Colace) caps Advil 2 tab PO Q8 PRN Pain 12/14/23 12/14/23 History Miralax 1 dose PO HS PRN Constipation 12/14/23 12/14/23 History Patient History Social History Smoking Status: Never smoker Preferred Language: Chinese Feels Safe at Home: Yes Review of Systems Review of Systems: All systems reviewed & are unremarkable except as noted in HPI & below Physical Exam Constitutional: WD/WN, vitals as above Respiratory: normal respiratory effort, lungs clear to auscultation Cardiovascular: Rate/Rhythm: regular rate and regular rhythm Gastrointestinal (Abdomen): distended with ascites. nontender. normal bowel sounds. Psychiatric: Orientation: alert and oriented x 3 Affect: euthymic affect Results & Data Vital Signs (Past 12 Hours) Vital Signs Temp Pulse Pulse Resp BP BP Pulse Ox 12/14/23 09:05 98.1 F 106 H 16 124/73 99 12/14/23 08:30 104 H 20 129/84 95 12/14/23 07:00 124/84 12/14/23 07:00 124/84 12/14/23 07:00 105 H 13 12/14/23 06:40 105 H 12/14/23 06:33 104 H 19 12/14/23 06:30 169/107 H 12/14/23 06:30 169/107 H 12/14/23 06:21 96 H 22 97 12/14/23 06:12 99 H 22 122/80 97 12/14/23 05:30 100 H 25 H 125/82 98 12/14/23 05:00 97 H 15 131/80 95 12/14/23 04:00 100 H 13 127/81 96 12/14/23 04:00 100 H 127/81 96 12/14/23 03:30 105 H 17 137/85 97 12/14/23 03:30 107 H 20 137/85 99 12/14/23 03:02 115 H 22 98 12/14/23 02:49 122 H 12/14/23 02:48 115 H 25 H 120/86 96 12/14/23 02:48 125 H 22 120/86 99 12/14/23 02:32 98.2 F 120 H 20 133/74 98 O2 Del Method 12/14/23 09:05 Room Air 12/14/23 08:30 Room Air 12/14/23 07:00 12/14/23 07:00 12/14/23 07:00 12/14/23 06:40 12/14/23 06:33 12/14/23 06:30 12/14/23 06:30 12/14/23 06:21 12/14/23 06:12 Room Air 12/14/23 05:30 Room Air 12/14/23 05:00 12/14/23 04:00 12/14/23 04:00 12/14/23 03:30 12/14/23 03:30 Room Air 12/14/23 03:02 Room Air 12/14/23 02:49 12/14/23 02:48 12/14/23 02:48 Room Air 12/14/23 02:32 Room Air Diagnostic Findings CT ABDOMEN + PELVIS With Contrast IV Amt: 118 ML OPTIRAY 320 EXAM: CT Abdomen and Pelvis With Intravenous Contrast CLINICAL HISTORY: Reason for exam: abd pain. TECHNIQUE: Axial computed tomography images of the abdomen and pelvis with intravenous contrast. CTDI is 26.27 mGy and DLP is 1439.16 mGy-cm. Automated exposure control was utilized for the study. A dose lowering technique was utilized adhering to the principles of ALARA. CONTRAST: Patient received 118 ML OPTIRAY 320 of IV contrast COMPARISON: CT abdomen/pelvis on 07/11/2013 FINDINGS: Lung bases: Please see accompanying CT chest for further details. ABDOMEN: Liver: Hepatic steatosis. Hepatomegaly. Nodular contour of the liver is suggestive of cirrhosis. Gallbladder and bile ducts: Prior cholecystectomy. No ductal dilation. Pancreas: Unremarkable. No mass. No ductal dilation. Spleen: Mild splenomegaly. Adrenals: Unremarkable. No mass. Kidneys and ureters: Unremarkable. No hydronephrosis or obstructing ureteral stone. Stomach and bowel: Mildly distended fluid and gas-filled small bowel loops could be secondary to enteritis or ileus. Partial small bowel obstruction in the distal ileum is not excluded. Evaluation of the stomach is limited by under distention. Diverticulosis without evidence of diverticulitis. PELVIS: Appendix: Normal appendix. Bladder: Underdistended bladder limits evaluation. Reproductive: Unremarkable as visualized. ABDOMEN and PELVIS: Intraperitoneal space: Large amount of ascites. Wall thickening of the colon may be secondary to under distention versus ascites versus colitis. Mild prominence of the maldonado of the small bowel may be secondary to ascites versus enteritis. No free air. Bones/joints: Degenerative changes of the spine. No acute fracture. No dislocation. Soft tissues: Body wall edema. Small fat-containing bilateral inguinal hernias. Small fat-containing umbilical hernia. Vasculature: Phleboliths in the pelvis. Atherosclerotic changes of the vasculature. No abdominal aortic aneurysm or dissection. Recanalized umbilical vein. Lymph nodes: Unremarkable. No enlarged lymph nodes. IMPRESSION: 1. Large amount of ascites. 2. Body wall edema. 3. Wall thickening of the colon may be secondary to under distention versus ascites versus colitis. 4. Mildly distended fluid and gas-filled small bowel loops could be secondary to enteritis or ileus. Partial small bowel obstruction in the distal ileum is not excluded. 5. Mild prominence of the maldonado of the small bowel may be secondary to ascites versus enteritis. 6. Hepatic steatosis. Hepatomegaly. Nodular contour of the liver is suggestive of cirrhosis. 7. Mild splenomegaly. Electronically signed by: Delfino Newell M.D. 12/14/23 05:40 AM Coding Level of Care Code 33736 IN/OBS CONSULT LVL 4,60M Diagnoses Cirrhosis of liver with ascites K74.60; R18.8 Hepatic cirrhosis type: unspecified hepatic cirrhosis (1) Cirrhosis of liver with ascites Hepatic cirrhosis type: unspecified hepatic cirrhosis Qualified Code(s): K74.60 - Unspecified cirrhosis of liver; R18.8 - Other ascites
[2023-12-14] MEDS: ALBUMIN 25% 25 GM/100 ML VIAL IV ONE (10:37)
[2023-12-14] MEDS: DOCUSATE SODIUM/SENNA 50/8.6MG TAB PO SCH (10:37)
[2023-12-14] MEDS: MULTIVITAMIN TAB PO SCH (10:37)
[2023-12-14] MEDS: FOLIC ACID 1 MG TAB PO SCH (10:37)
[2023-12-14 11:11] LABS: Hep B Surface Ag with confirm Negative (Negative)
[2023-12-14 11:16] LABS: Hep C Ab Rflx HepCQuant RNA Negative (Negative)
--- NOTE | 2023-12-14 12:58 | Ultrasound Report ---
ULTRASOUND-GUIDED PARACENTESIS CLINICAL HISTORY: Ascites PROCEDURE: Procedure and risks were explained. Informed consent was obtained. A final timeout was com pleted. The abdomen was prepped and draped in sterile fashion. 1% lidocaine was utilized for skin ane sthesia. Utilizing ultrasound guidance, a 5 [place] safety centesis catheter was advanced into the left lower q uadrant pocket of ascites. Ultrasound images were obtained. 5 L of yellow-colored ascites fluid was r emoved with 1 L sent to the lab. The catheter was removed and Band-Aid applied. The patient tolerated the procedure well. Vital signs will be monitored postprocedure. IMPRESSION: Ultrasound-guided paracentesis as above. Performed, dictated, and signed by Leonardo Saunders PA-C; to be co-signed by Dr. Mayank Quinn. Electronically signed by: Mayank Quinn M.D. 12/14/2023 1:25 PM
[2023-12-14] MEDS: ALBUMIN 25% 25 GM/100 ML VIAL IV SCH (13:18)
--- NOTE | 2023-12-14 13:20 | Ultrasound Report ---
BILATERAL LOWER EXTREMITY VENOUS DOPPLER HISTORY: Acute pain and swelling of the lower legs leg swelling COMPARISON STUDY: None. FINDINGS: There is normal compressibility, flow, and augmentation within the left lower extremity lupe p venous structures. Deep venous thrombi noted within the right superficial femoral vein, mid to distal portions which is partially occlusive. Additional occlusive thrombus in the majority of the right popliteal vein. Subcu taneous edema limits evaluation of the right calf veins. No additional DVT identified. IMPRESSION: 1. Likely acute DVT of the right lower extremity as above. 2. No left-sided DVT. ACT 112: Negative or not required by law. Electronically signed by: Mayank Quinn M.D. 12/14/2023 1:18 PM
[2023-12-14 13:59] LABS: Albumin Peritoneal Fluid < 1.5 gm/dl; Total Protein Peritoneal Fluid < 3.0 gm/dl
[2023-12-14 14:15] LABS: Appearance Peritoneal Fluid Slightly Hazy; Color Peritoneal Fluid Yellow; Lymphocytes, Fluid 55 %; Mono,Macrophage,Mesothelial 41 %; Neutrophils, Fluid 4 %; RBC Peritoneal Fluid Auto < 2000 /uL; WBC Peritoneal Fluid Auto 324 /ul (0-300)
--- NOTE | 2023-12-14 15:06 | Communication Note ---
Date of Service: December 14, 2023 Patient was seen and examined at bedside. 63-year-old male with PMH of PAF, HLD, alcohol abuse, colon polyps, internal hemorrhoids, mood disorder, past tobacco abuse presented with complaint of 1 month history of increasing abdominal distention associated with achy abdominal discomfort for the last 2 to 3 weeks ago [employer], no fever/no chills, associated with increasing leg swelling for last few weeks, denied chest pain or shortness of breath, reports constipation. He is being managed for the following: Cirrhosis of liver with ascites Alcoholic hepatitis: Maddrey DF score of 9.5 points at admission. Possible SBP Lower extremity swelling: Secondary to decompensated cirrhosis Constipation Patient presented with increasing abdominal distention associated with achy abdominal pain. See above. Admitting CTAP with large amount of ascites, body wall edema. Hepatic steatosis noted. Status post paracentesis 12/13: 5 L of yellow-colored ascites fluid removed. Follow-up peritoneal fluid studies and culture. Patient reports improvement in his abdominal pain and distention after paracentesis. Continue with low-sodium diet, avoid hepatotoxic medication. GI evaluated, recommends outpatient hepatology, outpatient EGD for variceal screening, Lasix 40 Mg daily and Aldactone 100 Mg daily.Recommend outpatient colonoscopy. Continue with MiraLAX as needed for constipation. Initiate diuretic Rx. c/w albumin iv, pt on iv rocephin Hypervolemic hyponatremia: In the setting of new diagnosis of alcoholic cirrhosis, home NSAIDs contributory. Admitting sodium of 124, Serum Osm 271, Urine Osm 661, Dwayne <10. sodium today 125. Patient counseled regarding fluid retention and hyponatremia side effects of of NSAID use. D/w Nephrology, will start lasix 40 mg iv q8h today and hold on to aldactone until Na improves. follow. labs in am. if w/ worsening volume status or Na level, consult nephrology formally. Complicated UTI: Continue with Rocephin 12/13. Follow urine culture. Acute DVT: US venous Doppler BLE obtained due to lower extremity swelling, acute DVT of RLE noted. CT chest with no PE. Will initiate heparin drip. will need DOAC on dc. New onset anemia: Possibly from hemorrhoidal bleed as per patient account. No current bleed per pt. Hemoglobin of 15.8 in 2019, 13.8 at admission. Iron level/vitamin B12 and folate level fairly WNL. Will initiate folate supplement due to low normal values iso alc abuse hx. Monitor HnH as pt on heparin drip. Alcohol abuse: WENDY S at risk protocol, DT precautions Other chronic medical conditions: Continue with/resume home meds as when able. PAF, patient NSR hyperlipidemia, not on maintenance medications . get lipid panel in AM. mood disorder, stable off maintenance medications past tobacco abuse DVT prophylaxis: hep drip due rle dvt Full code For detailed information on the patient, refer to today's H&P note. Text document was generated using conXt voice recognition software. It may contain grammatical or spelling errors. Kindly contact undersigned for clarification of any documentation item in question.
[2023-12-14] MEDS: Heparin IV Adult Wt-Based Low-Dose *NO* INITIAL Bolus Protocol IV STA (15:48)
[2023-12-14 17:05] LABS: Basophils # (auto) 0.02 K/uL (0.00-0.20); Basophils % (auto) 0.4 %; Eosinophils % (auto) 1.8 %; Hematocrit (blood only) 33.2 % (42.0-52.0); Hemoglobin 11.3 g/dl (14.0-18.0); Immature Granulocytes # (auto) 0.03 K/uL (0.01-0.20); Immature Granulocytes % (auto) 0.5 %; Lymphocytes # (auto) 1.04 K/uL (1.20-3.40); Lymphocytes % (auto) 18.2 %; Mean Corpuscular Hemoglobin 33.8 pg (25.0-34.0); Mean Corpuscular Volume 99.4 fL (80.0-100.0); Monocytes # (auto) 0.74 K/uL (0.11-0.59); Neutrophils # (auto) 3.77 K/uL (1.40-6.50); Neutrophils % (auto) 66.1 %; Platelet Count 190 K/uL (130-400); RDW Coefficient of Variation 13.4 % (11.5-14.5); RDW Standard Deviation 49.4 fL (36.4-46.3); Red Blood Count 3.34 M/uL (4.70-6.10)
[2023-12-14] MEDS: HEPARIN SODIUM/DEXTROSE 25,000 UNITS/500 ML BAG IV SCH (17:15)
[2023-12-14] MEDS: PANTOprazole 40 MG TAB PO SCH (17:16)
[2023-12-14] MEDS: FUROSEMIDE 40 MG/4 ML VIAL IV SCH (17:16)
[2023-12-14] MEDS: FUROSEMIDE 40 MG/4 ML VIAL IV ONE (17:35)
[2023-12-14 17:36] LABS: INR 1.4 (0.9-1.1); Partial Thromboplastin Ratio 1.1; Partial Thromboplastin Time 30 Seconds (21-31); Prothrombin Time 14.8 Seconds (9.0-12.0)
[2023-12-14 23:54] LABS: ANTI-Xa, UFH(UnfractionatedHep < 0.10 IU/ml (0.3-0.7)
[2023-12-15] MEDS: HEPARIN IV BOLUS 4,500 UNITS in SYRINGE 0 ML IV STA (01:03)
[2023-12-15] MEDS: cefTRIAXone SODIUM 2,000 MG/50 ML BAG IV SCH (06:00)
[2023-12-15] MEDS ORDERED: cefTRIAXone SODIUM 2,000 MG/50 ML BAG IV SCH (07:00)
[2023-12-15] MEDS: SPIRONOLACTONE 100 MG TAB PO SCH (07:44)
[2023-12-15] MEDS: THIAMINE HCL 100 MG TAB PO SCH (07:44)
[2023-12-15 07:57] LABS: Basophils # (auto) 0.04 K/uL (0.00-0.20); Basophils % (auto) 0.6 %; Eosinophils # (auto) 0.15 K/uL (0.00-0.50); Eosinophils % (auto) 2.4 %; Hematocrit (blood only) 30.6 % (42.0-52.0); Hemoglobin 11.1 g/dl (14.0-18.0); Immature Granulocytes # (auto) 0.03 K/uL (0.01-0.20); Immature Granulocytes % (auto) 0.5 %; Lymphocytes # (auto) 1.23 K/uL (1.20-3.40); Lymphocytes % (auto) 19.5 %; Mean Corpuscular Hgb Conc 36.3 g/dL (32.0-36.0); Mean Corpuscular Volume 96.5 fL (80.0-100.0); Mean Platelet Volume 9.1 fL (9.4-12.4); Monocytes # (auto) 0.81 K/uL (0.11-0.59); Monocytes % (auto) 12.8 %; Neutrophils # (auto) 4.06 K/uL (1.40-6.50); Neutrophils % (auto) 64.2 %; Platelet Count 188 K/uL (130-400); RDW Coefficient of Variation 13.2 % (11.5-14.5); RDW Standard Deviation 47.1 fL (36.4-46.3); Red Blood Count 3.17 M/uL (4.70-6.10); White Blood Count 6.32 K/ul (4.8-10.8)
[2023-12-15 08:00] LABS: ANTI-Xa, UFH(UnfractionatedHep 0.13 IU/ml (0.3-0.7)
[2023-12-15 08:04] LABS: Albumin Globulin Ratio 0.8 (0.9-2); Albumin Level 2.6 gm/dl (3.4-5.0); BUN Creatinine Ratio 14.9 (10-20); Calcium 7.3 mg/dl (8.6-10.3); Chol HDL Ratio 2.5 (0-5); Creatinine Clr Calc Pharmacy 118.8 ml/min; Est GFR (African American) 113.8 ml/min; Est GFR (Non-African American) 98.2 ml/min; Globulin 3.2 gm/dl (2.5-4.0); Phosphorus 3.2 mg/dl (2.5-4.9); Potassium 3.2 mmol/L (3.5-5.1); Total Protein 5.8 gm/dl (6.0-8.3)
[2023-12-15] MEDS ORDERED: FUROSEMIDE 40 MG/4 ML VIAL IV SCH (09:00)
[2023-12-15] MEDS: HEPARIN SOD (PORCINE) 1000 UNIT/ML IV ONE ×2 (09:02→17:08)
[2023-12-15] MEDS: METOPROLOL TARTRATE 1 MG/ML VIAL IV PRN (10:11)
[2023-12-15] MEDS: LORazepam 2 MG/1 ML VIAL IV PRN (10:19)
[2023-12-15] MEDS: POTASSIUM CHLORIDE / WTR 10 MEQ/100 ML PLCT IV SCH (11:04)
[2023-12-15] MEDS: POTASSIUM CHLORIDE CRTAB 20 MEQ TABCR PO SCH (11:06)
--- NOTE | 2023-12-15 11:22 | Cardiology Consultation ---
<Statement entered by Cayla Castro, - 12/15/23 15:49> I have reviewed the advanced practitioner's documentation and agree with the plan of care. I accept the responsibility for the associated risk. Pt seen in cardiology consultation due to newly diagnosed AF Pt has significant ETOH use; was admitted ascetics and had 5L removed by paracentesis yesterday. He was ST on admission and then this morning around 9am he converted to AF with RVR. He was started on heparin and metoprolol. Pt reports occasional palpitations His echo today reveals EF is normal with no significant valvular pathology; the RV appears mildly dilated. Recommend eliquis for oral AC; if no further procedures planned then can stop heparin infusion and do eliquis; but I will defer this transition to hospitalist team in case the pt is to have other GI procedures Recommend toprol 25mg BID for rate control and titrate up as needed to maintain resting HR <90 He should have a lipid panel He will need cardiology follow upon discharge I discussed my recommendations with the hospitalist and he agreed with my plan Date of Consultation December 15, 2023 Assessment & Plan (1) Atrial fibrillation with rapid ventricular response: (2) Cirrhosis of liver with ascites: (3) Acute hyponatremia: Plan Currently admitted with new onset liver cirrhosis likely secondary to chronic ETOH dependence. Developed A Fib RVR after admission, initial ECG indicated ST. -BP trending on the low side -HR also trending above 100 -known Hx of pAF, now with RVR -[id number] with (likely underestimated due to lack of routine medical evaluations) -reviewed risk of thromboembolic event due to atrial fibrillation, continue IV heparin for now we will need to be transitioned to oral anticoagulation prior to discharge will likely benefit from NOAC -5 L removed during paracentesis yesterday - echocardiogram completed for additional evaluation, ejection fraction normal on echocardiogram, some mild LVH -monitor and replace electrolytes as needed , recommend K > 4 and Mg > 2 - recommend starting Toprol 25 twice daily to improve rate control, can up titrate as tolerated case discussed with Dr. Castro, see her attestation for additional recommendations [facility] History of Present Illness Attending Physician: Di Gardnre MD History of Present Illness 63 year old male seen in consultation today in regard to A Fib with RVR. Presented tot he ER yesterday with abdominal pain/distention worsening for 1 month prior to presentation. Known history of pAF, HLD, ETOH abuse, cirrhosis. Admits to drinking at 5-6 beers daily with additional bourbon. Seems on chart review he was diagnosed with A Fib several years ago during a hospital stay but did not continue with routine follow up outpatient. did notice palpitations after being told that he was having atrial fibrillation but was asymptomatic pr ior to this. Denies chest pain, shortness of breath, edema, dizziness or syncope. Allergies Allergy/AdvReac Type Severity Reaction Status Date / Time No Known Allergies Allergy Verified 12/14/23 06:18 Home Medications Medication Instructions Recorded Confirmed Type docusate sodium 100 mg capsule 100 mg PO BID PRN constipation #20 06/11/12/14/23 Rx (Colace) caps Advil 2 tab PO Q8 PRN Pain 12/14/23 12/14/23 History Miralax 1 dose PO HS PRN Constipation 12/14/23 12/14/23 History Patient History Social History Smoking Status: Former smoker Hx Alcohol Use: Yes Hx Substance Use: No Preferred Language: Burundian Communication Ability: Effective Machine Stitcher Required: No Beliefs That Will Affect Care: None Current Living Situation: Alone Other Information That Helps Us Care for You: No Feels Safe at Home: Yes Safety Concerns: Feels Safe At This Time Assistive Devices: Glasses Review of Systems Review of Systems: All systems reviewed & are unremarkable except as noted in HPI & below Physical Exam Constitutional: well developed, well nourished and + ill appearing; no acute distress Neck: trachea midline, no thyromegaly Respiratory: normal respiratory effort, lungs clear to auscultation Cardiovascular: Rate/Rhythm: + tachycardic and + irregularly irregular Vessels: no JVD Gastrointestinal (Abdomen): Inspection/Auscultation: + abdomen distended and normal bowel sounds Percussion/Palpation: + abdomen tender and abdomen soft Skin: no rashes, warm and dry Results & Data Vital Signs (Past 12 Hours) Vital Signs Temp Pulse Pulse Resp BP BP Pulse Ox 12/15/23 10:27 113 H 96/58 L 12/15/23 10:11 137 H 100/56 L 12/15/23 07:49 36.7 C 105 H 16 121/72 93 12/15/23 07:40 12/15/23 07:00 104 H 12/15/23 04:36 37.0 C 108 H 20 125/54 L 93 12/15/23 03:56 106 H 12/14/23 23:18 36.3 C L 101 H 18 113/64 95 O2 Del Method 12/15/23 10:27 12/15/23 10:11 12/15/23 07:49 Room Air 12/15/23 07:40 Room Air 12/15/23 07:00 12/15/23 04:36 Room Air 12/15/23 03:56 12/14/23 23:18 Room Air Laboratory Results Laboratory Results WBC 6.32 K/ul (4.8-10.8) 12/15/23 06:55 RBC 3.17 M/uL (4.70-6.10) L 12/15/23 06:55 Hgb 11.1 g/dl (14.0-18.0) L 12/15/23 06:55 POC Hgb 14.6 g/dl (14.0-18.0) 12/14/23 03:02 Hct 30.6 % (42.0-52.0) L 12/15/23 06:55 POC Hct 43 % (42-52) 12/14/23 03:02 MCV 96.5 fL (80.0-100.0) 12/15/23 06:55 MCH 35.0 pg (25.0-34.0) H 12/15/23 06:55 MCHC 36.3 g/dL (32.0-36.0) H 12/15/23 06:55 RDW Std Deviation 47.1 fL (36.4-46.3) H 12/15/23 06:55 RDW Coeff of Elisabeth 13.2 % (11.5-14.5) 12/15/23 06:55 Plt Count 188 K/uL (130-400) 12/15/23 06:55 MPV 9.1 fL (9.4-12.4) L 12/15/23 06:55 Immature Gran % (Auto) 0.5 % 12/15/23 06:55 Neut % (Auto) 64.2 % 12/15/23 06:55 Lymph % (Auto) 19.5 % 12/15/23 06:55 Hamilton % (Auto) 12.8 % 12/15/23 06:55 Eos % (Auto) 2.4 % 12/15/23 06:55 Baso % (Auto) 0.6 % 12/15/23 06:55 Reticulocyte % (Auto) 2.89 % (0.50-2.00) H 12/14/23 08:28 Neut # (Auto) 4.06 K/uL (1.40-6.50) 12/15/23 06:55 Lymph # (Auto) 1.23 K/uL (1.20-3.40) 12/15/23 06:55 Hamilton # (Auto) 0.81 K/uL (0.11-0.59) H 12/15/23 06:55 Eos # (Auto) 0.15 K/uL (0.00-0.50) 12/15/23 06:55 Baso # (Auto) 0.04 K/uL (0.00-0.20) 12/15/23 06:55 Reticulocyte # 0.100 10^6/uL (0.020-0.100) 12/14/23 08:28 Immature Gran # (Auto) 0.03 K/uL (0.01-0.20) 12/15/23 06:55 PT 14.8 Seconds (9.0-12.0) H 12/14/23 16:31 INR 1.4 (0.9-1.1) H 12/14/23 16:31 APTT 30 Seconds (21-31) 12/14/23 16:31 PTT Ratio 1.1 12/14/23 16:31 Heparin Anti-Xa, Unfract 0.13 IU/ml (0.3-0.7) L 12/15/23 06:55 POC Sodium 127 mmol/L (135-144) L 12/14/23 03:02 Sodium 129 mmol/L (136-145) L 12/15/23 06:55 POC Potassium 4.7 mmol/L (3.3-5.0) 12/14/23 03:02 Potassium 3.2 mmol/L (3.5-5.1) L D 12/15/23 06:55 POC Chloride 93 mmol/L (101-112) L 12/14/23 03:02 Chloride 96 mmol/L (98-107) L 12/15/23 06:55 Carbon Dioxide 26 mmol/L (21-32) 12/15/23 06:55 POC Total CO2 24 mmol/L (24-31) 12/14/23 03:02 Anion Gap 7 (3-11) 12/15/23 06:55 POC Anion Gap 16.0 mmol/L (16-25) 12/14/23 03:02 POC BUN 11 mg/dl (7-18) 12/14/23 03:02 BUN 11 mg/dl (6-23) 12/15/23 06:55 Creatinine 0.74 mg/dl (0.6-1.4) 12/15/23 06:55 POC Creatinine 0.7 mg/dl (0.6-1.3) 12/14/23 03:02 Est Cr Clr Drug Dosing 118.8 ml/min 12/15/23 06:55 Est GFR ( Amer) 113.8 ml/min 12/15/23 06:55 Est GFR (Non-Af Amer) 98.2 ml/min 12/15/23 06:55 BUN/Creatinine Ratio 14.9 (10-20) 12/15/23 06:55 Glucose 119 mg/dl (70-99(Fasting)) H 12/15/23 06:55 POC Glucose (other) 104 mg/dl (70-99) H 12/14/23 03:02 Osmolality 271 mOsm/kg (280-300) L 12/14/23 02:50 Calcium 7.3 mg/dl (8.6-10.3) L 12/15/23 06:55 POC Ioniz Calcium Chaim 1.09 mmol/l (1.12-1.32) L 12/14/23 03:02 Phosphorus 3.2 mg/dl (2.5-4.9) 12/15/23 06:55 Magnesium 2.0 mg/dl (1.7-2.4) 12/15/23 06:55 Iron 48 mcg/dl (35-175) 12/14/23 08:28 Transferrin < 95 mg/dl (200-360) L 12/14/23 08:28 Ferritin 543.5 ng/ml (8-388) H 12/14/23 08:28 Total Bilirubin 2.0 mg/dl (0.2-1.0) H 12/15/23 06:55 AST 26 U/L (13-39) 12/15/23 06:55 ALT 14 U/L (7-52) 12/15/23 06:55 Alkaline Phosphatase 80 U/L (34-104) 12/15/23 06:55 Troponin I High Sens 11.0 pg/ml (0-20) 12/15/23 10:03 Total Protein 5.8 gm/dl (6.0-8.3) L D 12/15/23 06:55 Albumin 2.6 gm/dl (3.4-5.0) L 12/15/23 06:55 Globulin 3.2 gm/dl (2.5-4.0) 12/15/23 06:55 Albumin/Globulin Ratio 0.8 (0.9-2) L 12/15/23 06:55 Triglycerides 33 mg/dl (0-150) 12/15/23 06:55 Cholesterol 42 mg/dl (0-200) 12/15/23 06:55 LDL Cholesterol, Calc 18 mg/dl 12/15/23 06:55 VLDL Cholesterol, Calc 7 mg/dl (0-30) 12/15/23 06:55 HDL Cholesterol 17 mg/dl 12/15/23 06:55 Cholesterol/HDL Ratio 2.5 (0-5) 12/15/23 06:55 Lipase 26 U/L (11-82) 12/14/23 02:50 Vitamin B12 414 pg/ml (180-914) 12/14/23 08:28 Folate 7.49 ng/ml (>5.38) 12/14/23 08:28 TSH 8.314 uIu/ml (0.300-4.500) H 12/14/23 02:50 Free T4 0.92 ng/dl (0.61-1.60) 12/14/23 02:50 Urine Color [place] 12/14/23 02:45 Urine Appearance Cloudy (Clear) A 12/14/23 02:45 Urine pH 6.0 (4.5-7.5) 12/14/23 02:45 Ur Specific [place] 1.027 (1.000-1.030) 12/14/23 02:45 Urine Protein 1+ (Negative) H 12/14/23 02:45 Urine Glucose (UA) Negative (Negative) 12/14/23 02:45 Urine Ketones 1+ (Negative) H 12/14/23 02:45 Urine Blood Negative (Negative) 12/14/23 02:45 Urine Nitrite Positive (Negative) A 12/14/23 02:45 Urine Bilirubin 1+ (Negative) H 12/14/23 02:45 Urine Urobilinogen Negative (Negative) 12/14/23 02:45 Ur Leukocyte Esterase 1+ (Negative) H 12/14/23 02:45 Urine WBC (Auto) 0-5 /hpf (0-5) 12/14/23 02:45 Urine RBC (Auto) 0-2 /hpf (0-2) 12/14/23 02:45 U Hyaline Cast (Auto) 3-5 /lpf (0-2) H 12/14/23 02:45 U Epithel Cells (Auto) 3-5 /hpf (0-2) H 12/14/23 02:45 Urine Bacteria (Auto) None Seen (None Seen) 12/14/23 02:45 Urine Mucus Present (None Prsent) A 12/14/23 02:45 Urine Osmolality 661 mOsm/kg (500-800) 12/14/23 02:45 Ur Random Sodium < 10 mmol/L 12/14/23 02:45 Fluid Neutrophils % 4 % 12/14/23 13:00 Fluid Lymphocytes % 55 % 12/14/23 13:00 Fluid [place] % 41 % 12/14/23 13:00 Fluid Comment 12/14/23 13:00 Peritoneal Color Yellow 12/14/23 13:00 Peritoneal Appearance Slightly Hazy 12/14/23 13:00 Peritoneal WBC (Auto) 324 /ul (0-300) H 12/14/23 13:00 Peritoneal RBC (Auto) < 2000 /uL 12/14/23 13:00 Peritoneal Tot Protein < 3.0 gm/dl 12/14/23 13:00 Peritoneal Albumin < 1.5 gm/dl 12/14/23 13:00 Ethyl Alcohol mg/dL < 10.0 mg/dl (<10.0) 12/14/23 02:50 Hep Bs Antigen Negative (Negative) 12/14/23 08:28 Hepatitis C Antibody Negative (Negative) 12/14/23 08:28 Impressions Chest CTA 12/14/23 02:50 Exam(s): CTA CHEST IV Amt: 118 ML OPTIRAY 320 EXAM: CT Angiography Chest With Intravenous Contrast CLINICAL HISTORY: Reason for exam: PE. TECHNIQUE: Axial computed tomographic angiography images of the chest with intravenous contrast. CTDI is 22.54 mGy and DLP is 677.24 mGy-cm. Automated exposure control was utilized for the study. A dose lowering technique was utilized adhering to the principles of ALARA. MIP reconstructed images were created and reviewed. COMPARISON: None FINDINGS: Pulmonary arteries: Unremarkable. No definite pulmonary embolus identified. Aorta: No acute findings. No aortic aneurysm or dissection. Lungs: Mild dependent atelectasis and lower lung atelectasis. No mass. Pleural space: Trace left and small right pleural effusions. No pneumothorax. Heart: Coronary artery calcifications. No cardiomegaly. No significant pericardial effusion. No evidence of RV dysfunction. Mediastinum: Small hiatal hernia. Bones/joints: Curvature of the spine. Degenerative changes of the spine. No acute fracture. No dislocation. Soft tissues: Mild bilateral gynecomastia. Lymph nodes: Unremarkable. No enlarged lymph nodes. Other findings: Please see accompanying CT abdomen/pelvis for further details. IMPRESSION: 1. No definite pulmonary embolus identified. 2. No aortic aneurysm or dissection. 3. Trace left and small right pleural effusions. 4. Mild dependent atelectasis and lower lung atelectasis. Electronically signed by: Delfino Newell M.D. 12/14/23 05:36 AM Abdomen/Pelvis CT 12/14/23 02:51 Exam(s): CT ABDOMEN + PELVIS With Contrast IV Amt: 118 ML OPTIRAY 320 EXAM: CT Abdomen and Pelvis With Intravenous Contrast CLINICAL HISTORY: Reason for exam: abd pain. TECHNIQUE: Axial computed tomography images of the abdomen and pelvis with intravenous contrast. CTDI is 26.27 mGy and DLP is 1439.16 mGy-cm. Automated exposure control was utilized for the study. A dose lowering technique was utilized adhering to the principles of ALARA. CONTRAST: Patient received 118 ML OPTIRAY 320 of IV contrast COMPARISON: CT abdomen/pelvis on 07/11/2013 FINDINGS: Lung bases: Please see accompanying CT chest for further details. ABDOMEN: Liver: Hepatic steatosis. Hepatomegaly. Nodular contour of the liver is suggestive of cirrhosis. Gallbladder and bile ducts: Prior cholecystectomy. No ductal dilation. Pancreas: Unremarkable. No mass. No ductal dilation. Spleen: Mild splenomegaly. Adrenals: Unremarkable. No mass. Kidneys and ureters: Unremarkable. No hydronephrosis or obstructing ureteral stone. Stomach and bowel: Mildly distended fluid and gas-filled small bowel loops could be secondary to enteritis or ileus. Partial small bowel obstruction in the distal ileum is not excluded. Evaluation of the stomach is limited by under distention. Diverticulosis without evidence of diverticulitis. PELVIS: Appendix: Normal appendix. Bladder: Underdistended bladder limits evaluation. Reproductive: Unremarkable as visualized. ABDOMEN and PELVIS: Intraperitoneal space: Large amount of ascites. Wall thickening of the colon may be secondary to under distention versus ascites versus colitis. Mild prominence of the maldonado of the small bowel may be secondary to ascites versus enteritis. No free air. Bones/joints: Degenerative changes of the spine. No acute fracture. No dislocation. Soft tissues: Body wall edema. Small fat-containing bilateral inguinal hernias. Small fat-containing umbilical hernia. Vasculature: Phleboliths in the pelvis. Atherosclerotic changes of the vasculature. No abdominal aortic aneurysm or dissection. Recanalized umbilical vein. Lymph nodes: Unremarkable. No enlarged lymph nodes. IMPRESSION: 1. Large amount of ascites. 2. Body wall edema. 3. Wall thickening of the colon may be secondary to under distention versus ascites versus colitis. 4. Mildly distended fluid and gas-filled small bowel loops could be secondary to enteritis or ileus. Partial small bowel obstruction in the distal ileum is not excluded. 5. Mild prominence of the maldonado of the small bowel may be secondary to ascites versus enteritis. 6. Hepatic steatosis. Hepatomegaly. Nodular contour of the liver is suggestive of cirrhosis. 7. Mild splenomegaly. Electronically signed by: Delfino Newell M.D. 12/14/23 05:40 AM Venous Doppler Study 12/14/23 06:42 BILATERAL LOWER EXTREMITY VENOUS DOPPLER HISTORY: Acute pain and swelling of the lower legs leg swelling COMPARISON STUDY: None. FINDINGS: There is normal compressibility, flow, and augmentation within the left lower extremity deep venous structures. Deep venous thrombi noted within the right superficial femoral vein, mid to distal portions which is partially occlusive. Additional occlusive thrombus in the majority of the right popliteal vein. Subcutaneous edema limits evaluation of the right calf veins. No additional DVT identified. IMPRESSION: 1. Likely acute DVT of the right lower extremity as above. 2. No left-sided DVT. ACT 112: Negative or not required by law. Electronically signed by: Mayank Quinn M.D. 12/14/2023 1:18 PM Paracentesis Ultrasound 12/14/23 08:00 ULTRASOUND-GUIDED PARACENTESIS CLINICAL HISTORY: Ascites PROCEDURE: Procedure and risks were explained. Informed consent was obtained. A final timeout was completed. The abdomen was prepped and draped in sterile fashion. 1% lidocaine was utilized for skin anesthesia. Utilizing ultrasound guidance, a 5 Green[place]ic safety centesis catheter was advanced into the left lower quadrant pocket of ascites. Ultrasound images were obtained. 5 L of yellow-colored ascites fluid was removed with 1 L sent to the lab. The catheter was removed and Band-Aid applied. The patient tolerated the procedure well. Vital signs will be monitored postprocedure. IMPRESSION: Ultrasound-guided paracentesis as above. Performed, dictated, and signed by Leonardo Saunders PA-C; to be co-signed by Dr. Mayank Quinn. Electronically signed by: Mayank Quinn M.D. 12/14/2023 1:25 PM Medications Administered Current Inpatient Medications Acetaminophen (Acetaminophen 500 Mg Tab) 500 mg PO Q6H PRN PRN Reason: fever/pain Stop: 01/13/24 06:41 Folic Acid (Folic Acid 1 Mg Tab) 1 mg PO QAM [facility] Stop: 01/13/24 08:59 Last Admin: 12/15/23 07:43 Dose: 1 mg Furosemide (Furosemide 40 Mg/4 Ml Vial) 40 mg IV Q8H [facility] Stop: 01/13/24 15:59 Last Admin: 12/15/23 07:42 Dose: 40 mg Ceftriaxone Sodium (Rocephin) 2,000 mg in 50 mls @ 100 mls/hr IV Q24H [facility] Stop: 12/25/23 05:59 Last Infusion: 12/15/23 06:41 Dose: Infused Promethazine HCl (Phenergan) 6.25 mg in 50.25 mls @ 201 mls/hr IV Q6H PRN PRN Reason: Nausea And Vomiting Stop: 01/13/24 06:41 Albumin Human (Albumin 25%) 25 gm in 100 mls @ 50 mls/hr IV Q8H [facility] Stop: 12/17/23 13:59 Last Infusion: 12/15/23 08:52 Dose: Infused Heparin Sodium/Dextrose (Heparin Sodium/Dextrose) 25,000 units in 500 mls @ 29 mls/hr IV .[id number] [facility]; Protocol Stop: 01/13/24 15:29 Last Admin: 12/15/23 09:03 Dose: 1,450 units/hr, 29 mls/hr Potassium Chloride (K Ke / Wtr) 10 meq in 100 mls @ 100 mls/hr IV Q1H [facility] Stop: 12/15/23 12:44 Last Admin: 12/15/23 11:04 Dose: 100 mls/hr Metoprolol Tartrate (Metoprolol Tartrate 1 Mg/Ml Vial) 5 mg IV Q5M PRN PRN Reason: Tachycardia Stop: 01/14/24 09:39 Last Admin: 12/15/23 10:11 Dose: 5 mg Morphine Sulfate (Morphine Sulfate 2 Mg/Ml Carp) 2 mg IV Q3H PRN PRN Reason: Pain Stop: 12/28/23 06:41 Multivitamins (Multivitamin Tab) 1 tab PO QAM [facility] Stop: 01/13/24 08:59 Last Admin: 12/15/23 07:43 Dose: 1 tab Oxycodone HCl (Oxycodone Hcl Ir 5 Mg Tab (Immediate Release)) 5 mg PO Q4H PRN PRN Reason: Pain Stop: 12/28/23 06:41 Pantoprazole Sodium (Pantoprazole 40 Mg Tab) 40 mg PO QAM [facility] Stop: 01/13/24 15:59 Last Admin: 12/15/23 07:45 Dose: 40 mg Polyethylene Glycol (Polyethylene (Miralax) 17 Gm Pack) 17 gm PO HS PRN PRN Reason: Constipation Stop: 01/13/24 08:43 Potassium Chloride (Potassium Chloride Crtab 20 Meq Tabcr) 40 meq PO Q2H [facility] Stop: 12/15/23 12:46 Last Admin: 12/15/23 11:06 Dose: 40 meq Senna/Docusate Sodium (Docusate Sodium/Senna 50/8.6mg Tab) 1 tab PO QAM [facility] Stop: 01/13/24 08:59 Last Admin: 12/15/23 07:47 Dose: 1 tab Spironolactone (Spironolactone 100 Mg Tab) 100 mg PO [facility] Stop: 01/14/24 08:59 Last Admin: 12/15/23 07:44 Dose: 100 mg Thiamine HCl (Thiamine Hcl 100 Mg Tab) 100 mg PO [facility] Stop: 01/14/24 08:59 Last Admin: 12/15/23 07:44 Dose: 100 mg (2) Cirrhosis of liver with ascites Hepatic cirrhosis type: unspecified hepatic cirrhosis Qualified Code(s): K74.60 - Unspecified cirrhosis of liver; R18.8 - Other ascites
[2023-12-15] MEDS: METOPROLOL TARTRATE 25 MG TAB PO SCH (12:37)
[2023-12-15 12:57] LABS: Hepatitis A Antibody IgM NON-REACTIVE (NON-REACTIVE); Hepatitis B Core Antibody IgM NON-REACTIVE (NON-REACTIVE)
--- NOTE | 2023-12-15 15:29 | Hospitalist Progress Note ---
Date of Service December 15, 2023 Assessment & Plan (1) Cirrhosis of liver with ascites: Plan 63-year-old male with PMH of PAF, HLD, alcohol abuse, colon polyps, internal hemorrhoids, mood disorder, past tobacco abuse presented with complaint of 1 month history of increasing abdominal distention associated with achy abdominal discomfort for the last 2 to 3 weeks ago [employer] CHILDHOOD WORKER, no fever/no chills, associated with increasing leg swelling for last few weeks, denied chest pain or shortness of breath, reports constipation. He is being managed for the following: Cirrhosis of liver with ascites Alcoholic hepatitis: Maddrey DF score of 9.5 points at admission. Possible SBP Lower extremity swelling: Secondary to decompensated cirrhosis Constipation Patient presented with increasing abdominal distention associated with achy abdominal pain. See above. Admitting CTAP with large amount of ascites, body wall edema. Hepatic steatosis noted. Status post paracentesis 12/13: 5 L of yellow-colored ascites fluid removed. Follow-up peritoneal fluid culture. Patient reports improvement in his abdominal pain and distention after paracentesis. Continue with low-sodium diet, avoid hepatotoxic medication. GI evaluated, recommends outpatient hepatology, outpatient EGD for variceal screening, Lasix 40 Mg daily and Aldactone 100 Mg daily. Recommend outpatient colonoscopy. Continue with MiraLAX as needed for constipation. c/w diuretic Rx. c/w albumin iv, pt on iv rocephin Hypervolemic hyponatremia: In the setting of new diagnosis of alcoholic cirrhosis, home NSAIDs contributory. Admitting sodium of 124, Serum Osm 271, Urine Osm 661, Dwayne <10. sodium today 129. Patient counseled regarding fluid retention and hyponatremia side effects of of NSAID use. follow. labs in am. Complicated UTI: Continue with Rocephin 12/13. Follow urine culture. Acute DVT: US venous Doppler BLE obtained due to lower extremity swelling, acute DVT of RLE noted. CT chest with no PE. Will initiate heparin drip. will need DOAC on dc. Echo done, EF greater than 65%. Afib RVR: noted 12/14, appriopriate response to iv and po metoprolol. Now in NSR by 1405 hrs. New diagnosis, cardio consult. pt on hep drip. New onset anemia: Possibly from hemorrhoidal bleed as per patient account. No current bleed per pt. Hemoglobin of 15.8 in 2019, 13.8 at admission. Iron level/vitamin B12 and folate level fairly WNL. Will initiate folate supplement due to low normal values iso alc abuse hx. Monitor HnH as pt on heparin drip. Alcohol abuse: WENDY S at risk protocol, DT precautions Other chronic medical conditions: Continue with/resume home meds as when able. PAF, patient NSR hyperlipidemia, not on maintenance medications . get lipid panel in AM. mood disorder, stable off maintenance medications past tobacco abuse DVT prophylaxis: hep drip due rle dvt Full code For detailed information on the patient, refer to today's H&P note. Text document was generated using [employer] voice recognition software. It may contain grammatical or spelling errors. Kindly contact undersigned for clarification of any documentation item in question. Admission and Anticipated Discharge Date Admission Date: December 14, 2023 Subjective Patient was seen and examined at bedside. Patient was lying in bed, on room air, NAD, resting comfortably. Patient was noted to be in A-fib RVR, EKG done with heart rate in 130s, irregular. Patient with some funny sensation in the chest but no chest discomfort or chest pain or shortness of breath. Patient reports eating okay, reports improvement in his belly pain. Physical Exam Physical Exam: GENERAL: Comfortable, pleasant, no respiratory distress SKIN: Pallor, warm HEENT: Pale palpebral conjunctivae, no ptosis, moist buccal mucosa NECK : Supple, no tenderness CHEST : CTA, no tenderness HEART : irregular rate rhythm, Tachycardic, no obvious murmurs ABDOMEN: abd soft, no tenderness EXTREMITIES : Bilateral LE swelling without tenderness, no other conspicuous deformities noted . RLE edema > LLE. NEUROLOGIC : Coherent, no facial asymmetry, no other gross focality Results & Data Results & Data Vital Signs (Past 12 Hours) Vital Signs Temp Pulse Pulse Resp BP BP Pulse Ox 12/15/23 13:31 99 H 93/57 L 12/15/23 13:11 131 H 102/58 L 12/15/23 13:05 125 H 12/15/23 11:36 36.7 C 111 H 16 104/65 93 12/15/23 10:27 113 H 96/58 L 12/15/23 10:11 137 H 100/56 L 12/15/23 07:49 36.7 C 105 H 16 121/72 93 12/15/23 07:40 12/15/23 07:00 104 H 12/15/23 04:36 37.0 C 108 H 20 125/54 L 93 12/15/23 03:56 106 H O2 Del Method 12/15/23 13:31 12/15/23 13:11 12/15/23 13:05 12/15/23 11:36 Room Air 12/15/23 10:27 12/15/23 10:11 12/15/23 07:49 Room Air 12/15/23 07:40 Room Air 12/15/23 07:00 12/15/23 04:36 Room Air 12/15/23 03:56 (1) Cirrhosis of liver with ascites Hepatic cirrhosis type: unspecified hepatic cirrhosis Qualified Code(s): K74.60 - Unspecified cirrhosis of liver; R18.8 - Other ascites
[2023-12-15 16:22] LABS: ANTI-Xa, UFH(UnfractionatedHep < 0.10 IU/ml (0.3-0.7)
[2023-12-15] MEDS ORDERED: Ativan IV Alcohol Withdrawal--Active Protocol IV PRN (19:22)
[2023-12-15] MEDS ORDERED: LORazepam 2 MG/1 ML VIAL IV PRN ×3 (19:22)
[2023-12-15] MEDS ORDERED: GABAPENTIN 1200MG ALCOHOL WITHDRAWAL LOAD PO STA (19:22)
[2023-12-15] MEDS: GABAPENTIN 600 MG TAB PO ONE (20:42)
[2023-12-15] MEDS: METOPROLOL SUCC 25MG EXT REL TAB PO SCH (20:42)
[2023-12-15 23:33] LABS: ANTI-Xa, UFH(UnfractionatedHep 0.31 IU/ml (0.3-0.7)
[2023-12-16] MEDS: GABAPENTIN 600 MG TAB PO SCH ×2 (02:27→13:29)
[2023-12-16] MEDS: FUROSEMIDE 40 MG TAB PO SCH (07:33)
[2023-12-16 08:08] LABS: Basophils # (auto) 0.03 K/uL (0.00-0.20); Basophils % (auto) 0.4 %; Eosinophils % (auto) 2.8 %; Hematocrit (blood only) 29.6 % (42.0-52.0); Hemoglobin 10.5 g/dl (14.0-18.0); Immature Granulocytes # (auto) 0.04 K/uL (0.01-0.20); Immature Granulocytes % (auto) 0.6 %; Lymphocytes # (auto) 1.67 K/uL (1.20-3.40); Lymphocytes % (auto) 23.6 %; Mean Corpuscular Hemoglobin 34.5 pg (25.0-34.0); Mean Corpuscular Hgb Conc 35.5 g/dL (32.0-36.0); Mean Corpuscular Volume 97.4 fL (80.0-100.0); Mean Platelet Volume 9.2 fL (9.4-12.4); Monocytes # (auto) 1.12 K/uL (0.11-0.59); Monocytes % (auto) 15.8 %; Neutrophils # (auto) 4.02 K/uL (1.40-6.50); Neutrophils % (auto) 56.8 %; Platelet Count 177 K/uL (130-400); RDW Coefficient of Variation 13.3 % (11.5-14.5); RDW Standard Deviation 47.7 fL (36.4-46.3); Red Blood Count 3.04 M/uL (4.70-6.10); White Blood Count 7.08 K/ul (4.8-10.8)
[2023-12-16 08:34] LABS: ANTI-Xa, UFH(UnfractionatedHep 0.21 IU/ml (0.3-0.7)
[2023-12-16 09:06] LABS: BUN Creatinine Ratio 14.7 (10-20); Calcium 7.7 mg/dl (8.6-10.3); Creatinine Clr Calc Pharmacy 117.2 ml/min; Est GFR (African American) 113.2 ml/min; Est GFR (Non-African American) 97.6 ml/min; Magnesium 2.1 mg/dl (1.7-2.4); Potassium 3.4 mmol/L (3.5-5.1)
--- NOTE | 2023-12-16 12:19 | Hospitalist Progress Note ---
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 He is being managed for the following: Cirrhosis of liver with ascites Alcoholic hepatitis: Maddrey DF score of 9.5 points at admission. Possible SBP Lower extremity swelling: Secondary to decompensated cirrhosis Constipation Patient presented with increasing abdominal distention associated with achy abdominal pain. See above. Admitting CTAP with large amount of ascites, body wall edema. Hepatic steatosis noted. Status post paracentesis 12/13: 5 L of yellow-colored ascites fluid removed. Follow-up peritoneal fluid culture. Patient reports improvement in his abdominal pain and distention after paracentesis. Continue with low-sodium diet, avoid hepatotoxic medication. GI evaluated, recommends outpatient hepatology, outpatient EGD for variceal screening, Lasix 40 Mg daily and Aldactone 100 Mg daily. Recommend outpatient colonoscopy. Continue with MiraLAX as needed for constipation. c/w diuretic Rx. dc iv albumin, pt on iv rocephin Hypervolemic hyponatremia: In the setting of new diagnosis of alcoholic cirrhosis, home NSAIDs contributory. Admitting sodium of 124, Serum Osm 271, Urine Osm 661, Dwayne <10. sodium today 129. Patient counseled regarding fluid retention and hyponatremia side effects of of NSAID use. follow. labs in am. Complicated UTI: Continue with Rocephin 12/13. Follow urine culture. Acute DVT: US venous Doppler BLE obtained due to lower extremity swelling, acute DVT of RLE noted. CT chest with no PE. Will initiate heparin drip. will need DOAC on dc. Discussion held regarding AC, pt chose eliquis, sent for pharmacy cost eval, requested CM for help w/ cost inquiry. Echo done, EF greater than 65%. Afib RVR: noted 12/14, appriopriate response to iv and po metoprolol. Now in NSR by 1405 hrs of 12/14. New diagnosis, cardio consult. pt on hep drip. to doac on dc. Cardio evaled, toprol 25 mg bid, cardio fu on dc. New onset anemia: Possibly from hemorrhoidal bleed as per patient account. No current bleed per pt. Hemoglobin of 15.8 in 2019, 13.8 at admission. Iron level/vitamin B12 and folate level fairly WNL. Will initiate folate supplement due to low normal values iso alc abuse hx. Monitor HnH as pt on heparin drip. Alcohol abuse: WENDY S at risk protocol, DT precautions Other chronic medical conditions: Continue with/resume home meds as when able. PAF, patient NSR hyperlipidemia, not on maintenance medications . get lipid panel in AM. mood disorder, stable off maintenance medications past tobacco abuse DVT prophylaxis: hep drip due rle dvt Full code Text document was generated using [employer] voice recognition software. It may contain grammatical or spelling errors. Kindly contact undersigned for clarification of any documentation item in question. Admission and Anticipated Discharge Date Admission Date: December 14, 2023 Subjective Patient was seen and examined at bedside. Patient was lying in bed, on room air, NAD, resting comfortably. Patient reports eating okay, Reports no belly pain. Reports moving bowels. Patient denies chest pain/palpitation/shortness of breath. Physical Exam Physical Exam: GENERAL: Comfortable, pleasant, no respiratory distress SKIN: Pallor, warm HEENT: Pale palpebral conjunctivae, no ptosis, moist buccal mucosa NECK : Supple, no tenderness CHEST : CTA, no tenderness HEART : irregular rate rhythm, Tachycardic, no obvious murmurs ABDOMEN: abd soft, no tenderness EXTREMITIES : Bilateral LE swelling without tenderness, no other conspicuous deformities noted . RLE edema > LLE. NEUROLOGIC : Coherent, no facial asymmetry, no other gross focality Results & Data Results & Data Vital Signs (Past 12 Hours) Vital Signs Temp Pulse Pulse Resp BP BP Pulse Ox 12/16/23 12:07 36.8 C 79 16 103/70 93 12/16/23 08:14 36.6 C 82 17 91/53 L 93 12/16/23 07:30 12/16/23 07:00 97 H 12/16/23 04:01 36.7 C 89 18 117/71 93 O2 Del Method 12/16/23 12:07 Room Air 12/16/23 08:14 Room Air 12/16/23 07:30 Room Air 12/16/23 07:00 12/16/23 04:01 Room Air (1) Cirrhosis of liver with ascites Hepatic cirrhosis type: unspecified hepatic cirrhosis Qualified Code(s): K74.60 - Unspecified cirrhosis of liver; R18.8 - Other ascites
[2023-12-16] MEDS: POTASSIUM CHLORIDE CRTAB 20 MEQ TABCR PO SCH (13:28)
[2023-12-16 16:30] LABS: ANTI-Xa, UFH(UnfractionatedHep 0.25 IU/ml (0.3-0.7)
--- NOTE | 2023-12-16 17:53 | Cardiology Progress Note ---
Date of Service December 16, 2023 Assessment & Plan (1) Atrial fibrillation with rapid ventricular response: Plan: converted to SR yesterday (2) Cirrhosis of liver with ascites: Plan: defer to hospitalist and GI recommend ETOH cessation (3) Acute hyponatremia: Plan: stable Plan 63y/o M with significant ETOH use and liver cirrhosis with newly diagnosed pAF and newly found DVT. He converted to SR yesterday afternoon would continue current dose of toprol 25mg BID continue IV heparin with the plan to transition to eliquis upon discharge pt will need cardiology f/u upon discharge no further in patient cardiac recommendations or testing at this juncture; please re-consult as necessary I discussed the case with the hospitalist on the phone and he agreed with my plan Currently admitted with new onset liver cirrhosis likely secondary to chronic ETOH dependence. Developed A Fib RVR after admission, initial ECG indicated ST. Admission and Anticipated Discharge Date Admission Date: December 14, 2023 Subjective pt seen in cardiology f/u due to newly found AF in the setting of significant ETOH use and ascities Pt has converted back to SR yesterday afternoon he denies any chest pain, lightheadedness and dizziness and SOB Review of Systems Review of Systems: All systems reviewed & are unremarkable except as noted in HPI & below Physical Exam Physical Exam: aaox3, NAD NC/AT, EOMI Supple No JVD Nrl S1/S2, No murmur CTA b/l no w/r/r distended soft nt/nd no LE edema b/l skin intact no focal deficits Results & Data Vital Signs (Past 12 Hours) Vital Signs Temp Pulse Pulse Resp BP BP Pulse Ox 12/16/23 15:45 36.9 C 85 16 104/68 94 12/16/23 15:30 79 12/16/23 12:07 36.8 C 79 16 103/70 93 12/16/23 08:14 36.6 C 82 17 91/53 L 93 12/16/23 07:30 12/16/23 07:00 97 H O2 Del Method 12/16/23 15:45 Room Air 12/16/23 15:30 12/16/23 12:07 Room Air 12/16/23 08:14 Room Air 12/16/23 07:30 Room Air 12/16/23 07:00 Laboratory Results Laboratory Results - last 24 hr 12/15/23 12/16/23 12/16/23 22:41 07:34 15:36 WBC 7.08 RBC 3.04 L Hgb 10.5 L Hct 29.6 L MCV 97.4 MCH 34.5 H MCHC 35.5 RDW Std Deviation 47.7 H RDW Coeff of Elisabeth 13.3 Plt Count 177 MPV 9.2 L Immature Gran % (Auto) 0.6 Neut % (Auto) 56.8 Lymph % (Auto) 23.6 Hancock % (Auto) 15.8 Eos % (Auto) 2.8 Baso % (Auto) 0.4 Neut # (Auto) 4.02 Lymph # (Auto) 1.67 Hancock # (Auto) 1.12 H Eos # (Auto) 0.20 Baso # (Auto) 0.03 Immature Gran # (Auto) 0.04 Heparin Anti-Xa, Unfract 0.31 0.21 L 0.25 L Sodium 129 L Potassium 3.4 L Chloride 95 L Carbon Dioxide 30 Anion Gap 4 BUN 11 Creatinine 0.75 Est Cr Clr Drug Dosing 117.2 Est GFR ( Amer) 113.2 Est GFR (Non-Af Amer) 97.6 BUN/Creatinine Ratio 14.7 Glucose 111 H Calcium 7.7 L Phosphorus 3.0 Magnesium 2.1 Diagnostic Findings Echo: 12/15/2023:EF preserved no significant valvular pathology Medications Administered Current Medications Acetaminophen (Acetaminophen 500 Mg Tab) 500 mg PO Q6H PRN PRN Reason: fever/pain Stop: 01/13/24 06:41 Folic Acid (Folic Acid 1 Mg Tab) 1 mg PO QAM [facility] Stop: 01/13/24 08:59 Last Admin: 12/16/23 07:32 Dose: 1 mg Furosemide (Furosemide 40 Mg Tab) 40 mg PO QAM [facility] Stop: 01/15/24 08:59 Last Admin: 12/16/23 07:33 Dose: 40 mg Gabapentin (Gabapentin 600 Mg Tab) 600 mg PO Q8H [facility] Stop: 12/17/23 07:31 Last Admin: 12/16/23 13:29 Dose: 600 mg Gabapentin (Gabapentin 600 Mg Tab) 600 mg PO Q12H [facility] Stop: 12/18/23 07:31 Gabapentin (Gabapentin 600 Mg Tab) 600 mg PO Q24H [facility] Stop: 12/19/23 07:31 Ceftriaxone Sodium (Rocephin) 2,000 mg in 50 mls @ 100 mls/hr IV Q24H [facility] Stop: 12/25/23 05:59 Last Infusion: 12/16/23 06:01 Dose: Infused Promethazine HCl (Phenergan) 6.25 mg in 50.25 mls @ 201 mls/hr IV Q6H PRN PRN Reason: Nausea And Vomiting Stop: 01/13/24 06:41 Heparin Sodium/Dextrose (Heparin Sodium/Dextrose) 25,000 units in 500 mls @ 38 mls/hr IV .[id number] [facility]; Protocol Stop: 01/13/24 15:29 Last Admin: 12/16/23 16:52 Dose: 1,900 units/hr, 38 mls/hr Lorazepam (Lorazepam 2 Mg/1 Ml Vial) 1 mg IV UD PRN; Protocol PRN Reason: EtOH Withdrawal AWSS Score 6,7 Stop: 01/14/24 19:21 Lorazepam (Lorazepam 2 Mg/1 Ml Vial) 2 mg IV UD PRN; Protocol PRN Reason: EtOH Withdrawal AWSS Score 8,9 Stop: 01/14/24 19:21 Lorazepam (Lorazepam 2 Mg/1 Ml Vial) 3 mg IV ONCE PRN; Protocol PRN Reason: EtOH Withdrawal AWSS Score 10+ Metoprolol Succinate (Metoprolol Succ 25mg Ext Rel Tab) 25 mg PO BID [facility] Stop: 01/14/24 20:59 Last Admin: 12/16/23 07:30 Dose: 25 mg Metoprolol Tartrate (Metoprolol Tartrate 1 Mg/Ml Vial) 5 mg IV Q5M PRN PRN Reason: Tachycardia Stop: 01/14/24 09:39 Last Admin: 12/15/23 13:11 Dose: 5 mg Morphine Sulfate (Morphine Sulfate 2 Mg/Ml [place]) 2 mg IV Q3H PRN PRN Reason: Pain Stop: 12/28/23 06:41 Multivitamins (Multivitamin Tab) 1 tab PO [facility] Stop: 01/13/24 08:59 Last Admin: 12/16/23 07:32 Dose: 1 tab Oxycodone HCl (Oxycodone Hcl Ir 5 Mg Tab (Immediate Release)) 5 mg PO Q4H PRN PRN Reason: Pain Stop: 12/28/23 06:41 Pantoprazole Sodium (Pantoprazole 40 Mg Tab) [facility] Stop: 01/13/24 15:59 Last Admin: 12/16/23 07:32 Dose: 40 mg Polyethylene Glycol (Polyethylene (Miralax) 17 Gm Pack) 17 gm PO HS PRN PRN Reason: Constipation Stop: 01/13/24 08:43 Senna/Docusate Sodium (Docusate Sodium/Senna 50/8.6mg Tab) 1 tab PO QAM [facility] Stop: 01/13/24 08:59 Last Admin: 12/16/23 07:34 Dose: Not Given Spironolactone (Spironolactone 100 Mg Tab) 100 mg PO QAM [facility] Stop: 01/14/24 08:59 Last Admin: 12/16/23 07:31 Dose: 100 mg Thiamine HCl (Thiamine Hcl 100 Mg Tab) 100 mg PO QAM [facility] Stop: 01/14/24 08:59 Last Admin: 12/16/23 07:32 Dose: 100 mg (2) Cirrhosis of liver with ascites Hepatic cirrhosis type: unspecified hepatic cirrhosis Qualified Code(s): K74.60 - Unspecified cirrhosis of liver; R18.8 - Other ascites
--- NOTE | 2023-12-16 22:27 | Electrocardiogram Report ---
Test Reason : Blood Pressure : */* mmHG Vent. Rate : 135 BPM Atrial Rate : 144 BPM P-R Int : * ms QRS Dur : 96 ms QT Int : 350 ms P-R-T Axes : * 82 -11 degrees QTcB Int : 525 ms Atrial fibrillation with rapid ventricular response Nonspecific ST abnormality Abnormal ECG When compared with ECG of 14-Dec-2023 03:01, Atrial fibrillation has replaced Sinus rhythm Confirmed by Vasiliy Paez ([id number]) on 12/16/2023 10:26:28 PM Referred By: REFERRED SELF Confirmed By: Vasiliy Paez
[2023-12-17 06:14] LABS: Hematocrit (blood only) 33.4 % (42.0-52.0); Hemoglobin 11.5 g/dl (14.0-18.0); Mean Corpuscular Hemoglobin 34.1 pg (25.0-34.0); Mean Corpuscular Hgb Conc 34.4 g/dL (32.0-36.0); Mean Corpuscular Volume 99.1 fL (80.0-100.0); Mean Platelet Volume 9.4 fL (9.4-12.4); Platelet Count 180 K/uL (130-400); RDW Coefficient of Variation 13.3 % (11.5-14.5); RDW Standard Deviation 48.5 fL (36.4-46.3); Red Blood Count 3.37 M/uL (4.70-6.10); White Blood Count 7.79 K/ul (4.8-10.8)
[2023-12-17 06:30] LABS: BUN Creatinine Ratio 13.2 (10-20); Calcium 7.7 mg/dl (8.6-10.3); Creatinine Clr Calc Pharmacy 115.7 ml/min; Est GFR (African American) 112.5 ml/min; Est GFR (Non-African American) 97.1 ml/min; Phosphorus 1.9 mg/dl (2.5-4.9); Potassium 4.2 mmol/L (3.5-5.1)
[2023-12-17 08:18] LABS: ANTI-Xa, UFH(UnfractionatedHep 0.32 IU/ml (0.3-0.7)
[2023-12-17] MEDS ORDERED: SODIUM PHOSPHATE 3 MMOL/1 ML INFUSION IV STA (08:53)
[2023-12-17] MEDS: SODIUM PHOSPHATE 21 MMOL in SODIUM CHLORIDE 0.9% 500 ML IV ONE (10:17)
[2023-12-17] MEDS: APIXABAN 5 MG TABLET PO SCH (11:09)
--- NOTE | 2023-12-17 12:02 | Discharge Summary ---
Date of Service December 17, 2023 Admission HPI Per Admitting Provider History obtained from patient and records. Medical history significant for PAF, hyperlipidemia, alcohol abuse, colonic polyps, internal hemorrhoids as per records, mood disorder, past tobacco abuse. Last confinement 2012 for paroxysmal A-fib. Patient discharged on metoprolol and aspirin as per cardiology recommendations. 1 month history of increasing abdominal distention. 3 weeks ago, patient noted achy abdominal discomfort. No fever, no chills. Increasing leg swelling the last couple of weeks. Denies chest pain, SOB. Episodic hemorrhoidal bleed from constipation. Patient started to cut down on alcohol 3 weeks ago as he suspected belly issues to be related to consumption. Patient consulted ER for worsening symptoms. Medical History as above Surgical History : Umbilical hernia repair, cholecystectomy Family History : Prostate cancer, DM, colon cancer, heart disease Personal/Social history : Past tobacco abuse, alcohol abuse, retired medical equipment manufacturing employee Admission Exam Per Admitting Provider GENERAL: Comfortable, pleasant, no respiratory distress SKIN: Pallor, warm HEENT: Pale palpebral conjunctivae, no ptosis, dry buccal mucosa NECK : Supple, no tenderness CHEST : CTA, no tenderness HEART : Tachycardic, no obvious murmurs ABDOMEN: Marked abdominal distention, central abdominal tenderness, positive fluid wave EXTREMITIES : Bilateral LE swelling without tenderness, no other conspicuous deformities noted NEUROLOGIC : Coherent, no facial asymmetry, no other gross focality Principal Diagnosis Cirrhosis of liver with ascites Alcoholic hepatitis Possible SBP Lower extremity swelling Constipation Hypervolemic hyponatremia Complicated UTI Acute DVT RLE A-fib RVR New onset anemia Alcohol abuse Discharge Exam GENERAL: Comfortable, pleasant, no respiratory distress SKIN: Pallor, warm HEENT: Pale palpebral conjunctivae, no ptosis, moist buccal mucosa NECK : Supple, no tenderness CHEST : CTA, no tenderness HEART : regular rate rhythm, no obvious murmurs ABDOMEN: abd soft, no tenderness EXTREMITIES : Bilateral LE swelling without tenderness, no other conspicuous deformities noted . RLE edema > LLE. NEUROLOGIC : Coherent, no facial asymmetry, no other gross focality Discharge Data Allergies Allergy/AdvReac Type Severity Reaction Status Date / Time No Known Allergies Allergy Verified 12/14/23 06:18 Consultations 12/14/23 05:42 ED Decision to Admit Stat 12/14/23 08:42 Consult Gastroenterology Routine 12/15/23 09:58 Consult Cardiology Routine Ordered Studies 12/14/23 02:50 CT angio chest PE protocol Stat 12/14/23 02:51 CT abd pelvis IV con only Stat 12/14/23 06:42 US venous doppler LE BI Stat 12/14/23 08:00 IR paracentesis abd w/img US Routine Hospital Course (1) Cirrhosis of liver with ascites: Plan 63-year-old male with PMH of PAF, HLD, alcohol abuse, colon polyps, internal hemorrhoids, mood disorder, past tobacco abuse presented with complaint of 1 month history of increasing abdominal distention associated with achy abdominal discomfort for the last 2 to 3 weeks ago [employer], no fever/no chills, associated with increasing leg swelling for last few weeks, denied chest pain or shortness of breath, reports constipation. He was managed for the following: Cirrhosis of liver with ascites Alcoholic hepatitis: Maddrey DF score of 9.5 points at admission. Possible SBP Lower extremity swelling: Secondary to decompensated cirrhosis Constipation Patient presented with increasing abdominal distention associated with achy abdominal pain. See above. Admitting CTAP with large amount of ascites, body wall edema. Hepatic steatosis noted. Status post paracentesis 12/13: 5 L of yellow-colored ascites fluid removed. Follow-up peritoneal fluid culture. NO growth so far. Patient reports improvement in his abdominal pain and distention after paracentesis. Continue with low-sodium diet, avoid hepatotoxic medication. GI evaluated, recommends outpatient hepatology, outpatient EGD for variceal screening, Lasix 40 Mg daily and Aldactone 100 Mg daily. Recommend outpatient colonoscopy. Pt has been made aware. Continue with MiraLAX as needed for constipation. c/w diuretic Rx. pt on iv rocephin Hypervolemic hyponatremia: In the setting of new diagnosis of alcoholic cirrhosis, home NSAIDs contributory. Admitting sodium of 124, Serum Osm 271, Urine Osm 661, Dwayne <10. sodium today 129. Patient counseled regarding fluid retention and hyponatremia side effects of of NSAID use. follow. labs in am. Complicated UTI: Continue with Rocephin 12/13. to po atb on dc. Acute DVT: US venous Doppler BLE obtained due to lower extremity swelling, acute DVT of RLE noted. CT chest with no PE. Will initiate heparin drip. will need DOAC on dc. Eliquis 35 dollars a month per CM, pt agreeable. Echo done, EF greater than 65%. Afib RVR: noted 12/14, appriopriate response to iv and po metoprolol. Now in NSR by 1405 hrs of 12/14. Cardio consult. pt on hep drip. to doac on dc. Cardio evaled, toprol 25 mg bid, cardio fu on dc. New onset anemia: Possibly from hemorrhoidal bleed as per patient account. No current bleed per pt. Hemoglobin of 15.8 in 2019, 13.8 at admission. Iron level/vitamin B12 and folate level fairly WNL. Will initiate folate supplement due to low normal values iso alc abuse hx. Monitor HnH as pt on heparin drip. Alcohol abuse: WENDY S at risk protocol, DT precautions Other chronic medical conditions: Continue with/resume home meds as when able. PAF, patient NSR hyperlipidemia, not on maintenance medications . get lipid panel in AM. mood disorder, stable off maintenance medications past tobacco abuse DVT prophylaxis: hep drip due rle dvt Full code Following instructions were communicated to the patient prior to discharge: Follow-up with your primary care physician within a week time and likely you will need labs CBC/CMP/magnesium/phosphorus. You were diagnosed with cirrhosis of liver with ascites. You will need to establish with outpatient hepatology for possible EGD [for variceal screening] and colonoscopy. You have been started on Aldactone and Lasix. You will need your self evaluated within a week time at the PCP office for blood work/Electrolytes. You can use etuq-nis-inlyhrt laxatives and stool softener with a goal of 1-2 bowel movements a day. Avoid use of NSAIDs which causes fluid retention and worsens hyponatremia. You also have low sodium level/hyponatremia, maintain low-sodium diet/increase protein diet/fluid restriction of around 1800 mL a day. Recommend complete abstinence from alcohol, the root cause of your all problems are related to excessive use of alcohol. You will be discharged on antibiotic to complete the course for urinary tract infection. As discussed at the bedside, you were noted to have blood clot in your right lower extremity. You will be discharged on Eliquis. Take Eliquis as [id number] mg twice a day for for 7 days [start date 12/17/2023 AM] followed by 5 mg twice a day thereafter. You are also diagnosed with atrial fibrillation with rapid ventricular response, cardiology evaluated you, you will be discharged on metoprolol for heart rate control. You will need to follow-up with cardiology upon discharge in 2 to 4 weeks time, coordinate with your PCP or her office for referral. Take your medications as prescribed. Please make sure that you are able to get your medications today by calling your pharmacy before you leave the hospital so that your treatment continuity is not broken. Text document was generated using [employer] voice recognition software. It may contain grammatical or spelling errors. Kindly contact undersigned for clarification of any documentation item in question. Home Health Attestation I certify that this patient is under my care and that I, or a physicians ophthalmic assistant working with me, had a face to-face encounter that meets the home health dfxq-io-uhyj encounter requirements with this patient. The encounter with the patient was in whole, or in part, for the following medical condition, which is the primary reason for home health care (list medical condition): I certify that, based on my findings, the following services are medically necessary home health services: My clinical findings support the need for the above services because: Further, I certify that my clinical findings support that this patient is homebound (i.e. absences from home require considerable and taxing effort and are for medical reasons or gnosticist services or infrequently or of short duration when for other reasons) because: Certification for Home Health Services: Based on the above findings, I certify that this patient is confined to the home and needs intermittent care home care, physical therapy and/or speech therapy or continues to need occupational therapy. The patient is under my care, and I have initiated the establishment of the plan of care. This patient will be followed by a physician who will periodically review the plan of care. Total Time Total Time Spent Total Time Spent (In Minutes): 45 Discharge Plan Discharge Items Patient Disposition: Home - Self-Care Reason For Visit: HYPONATREMIA Discharge Diagnosis: Cirrhosis of liver with ascites Alcoholic hepatitis Possible SBP Lower extremity swelling Constipation Hypervolemic hyponatremia Complicated UTI Acute DVT RLE A-fib RVR New onset anemia Alcohol abuse Condition on Discharge: Fair Activity: Resume your previous activity Non-emergency contact: Primary Care Provider Call non-emergency contact if: you have any medication questions and your symptoms worsen Follow-up/Referrals: Sarah Triana CRNP [Nurse Practitioner] - (The Cardiology office will contact you to schedule a follow up appointment.) Yvette Siu MD [Outside Practitioners] - 12/24/23 10:20 am (Date & Time 12/24/2023 10:20 AM Provider Yvette Siu MD Department General Internal Medicine [facility] ) Wood Brandon PA-C [Physician Industrial Furnace Fabricator] - Diet: Heart Healthy and Low Sodium (2gm) Fluids: 1800ml (7 cups) Addtl Attending Provider Instructions: Follow-up with your primary care physician within a week time and likely you will need labs CBC/CMP/magnesium/phosphorus. You were diagnosed with cirrhosis of liver with ascites. You will need to establish with outpatient hepatology for possible EGD [for variceal screening] and colonoscopy. You have been started on Aldactone and Lasix. You will need your self evaluated within a week time at the PCP office for blood work/Electrolytes. You can use lywl-zro-dbribcc laxatives and stool softener with a goal of 1-2 bowel movements a day. Avoid use of NSAIDs which causes fluid retention and worsens hyponatremia. You also have low sodium level/hyponatremia, maintain low-sodium diet/increase protein diet/fluid restriction of around 1800 mL a day. Recommend complete abstinence from alcohol, the root cause of your all problems are related to excessive use of alcohol. You will be discharged on antibiotic to complete the course for urinary tract infection. As discussed at the bedside, you were noted to have blood clot in your right lower extremity. You will be discharged on Eliquis. Take Eliquis as [id number] mg twice a day for for 7 days [start date 12/17/2023 AM] followed by 5 mg twice a day thereafter. You are also diagnosed with atrial fibrillation with rapid ventricular response, cardiology evaluated you, you will be discharged on metoprolol for heart rate control. You will need to follow-up with cardiology upon discharge in 2 to 4 weeks time, coordinate with your PCP or her office for referral. Take your medications as prescribed. Please make sure that you are able to get your medications today by calling your pharmacy before you leave the hospital so that your treatment continuity is not broken. Pending Studies at Discharge: Yes Stand-Alone Forms: My [employer], Smoking Cessation Medications and DC Order Prescriptions: New Eliquis 5 mg tablet 5 mg PO UD Qty: 74 0RF Rx Instructions: 10 mg twice a day for 7 days, then 5 mg twice a day. metoprolol succinate 25 mg Tablet Extended Release 24 Hr 25 mg PO BID Qty: 60 0RF spironolactone 100 mg Tablet 100 mg PO QAM Qty: 30 0RF furosemide 40 mg Tablet 40 mg PO QAM Qty: 30 0RF sennosides-docusate sodium [Senokot-S] 8.6-50 mg Tablet 1 tab PO QAM PRN (Reason: constipation) Qty: 30 0RF pantoprazole 40 mg Tablet,Delayed Release (Dr/Ec) 40 mg PO QAM Qty: 30 0RF folic acid 1 mg Tablet 1 mg PO QAM Qty: 30 0RF multivitamin with folic acid [Daily-Mike (with folic acid)] 400 mcg Tablet 1 tab PO QAM Qty: 30 0RF thiamine HCl (vitamin B1) 100 mg Tablet 100 mg PO QAM Qty: 30 0RF gabapentin 600 mg Tablet 600 mg PO Q12H 2 Days Qty: 4 0RF cefdinir 300 mg capsule 300 mg PO BID 4 Days Qty: 8 0RF Probiotic 3 billion cell capsule 3,000 mmu cells PO DAILY 7 Days Qty: 7 0RF Rx Instructions: administer with a meal Continued Miralax packet 1 dose PO HS PRN (Reason: Constipation) Discontinued docusate sodium [Colace] 100 mg capsule 100 mg PO BID PRN (Reason: constipation) Qty: 20 0RF Advil 2 tab PO Q8 PRN (Reason: Pain) Discharge Orders: Discharge Order (Routine); Ordered 12/17/23 Ordered By: Di Gardner Admission Data Admit Date/Time: 12/14/23 06:39 Attending Provider: Di Gardner Admit Provider: Lonny Pickens Primary Care Provider: Jasper Kaufman Other Providers: Lonny Pickens; Wen Padilla; German Gautam; Tootie Michelle; Reina Silva; Ashleigh Li; Brenda Arnett; Igna Hendrix; Sorin Blandon; Trung Good; Wilfredo Garrido; Tera Nava; Ibrahima Daniels; Niharika Gooden; Chelsey Anderson; Pam Masterson; Aline Bassett; Parish Arauz; Wood Brandon; Eusebio Licona; Sarah Jordan; Hazel Burns Jr; Johnny Ortiz; Jordi Dodd; Vinnie Geronimo; Eulalio Krueger; Joanna Nielsen; Bartolo Munguia I; Sarah Triana; Flakito De La Cruz; Du Samuel; Randy Villarreal; Chai Hwang; Ryder Hilton; Jenna Hinson; Cayla Castro; Sabrina Vu; Sarah Vega; Anival Meneses; Dirk Huber; Jeannette Rosado; Joanna Kyle; Renée Wagner; Juan Antonio Landaverde; Alec Velasco; Vickie Mccann
[2023-12-17] MEDS ORDERED: GABAPENTIN 600 MG TAB PO SCH (19:30)
[2023-12-19] MEDS ORDERED: GABAPENTIN 600 MG TAB PO SCH (07:30)
== END 2023-12-17 15:00 | disposition home or self-care (01) | DRG 433 ==
LOC: ED 02:24 → 2W 06:39